=== PATIENT | male | born 1955 | race Caucasian/White ===

== ENCOUNTER 2019-11-21 16:09 | Emergency (ER) | payer OTHER, SELFPAY ==
[2019-11-21 16:20] VITALS: BP 141/99; PULSE 105; RESP 20; TEMP 37.9; O2SAT 97
--- NOTE | 2019-11-21 16:24 | ED.SKABFB ---
HPI - Skin/Abscess/Foreign Bdy General Chief complaint: Skin/Abscess/Foreign Body Stated complaint: L/leg swollen/pos spider bite Time Seen by Provider: 11/21/19 16:24 Source: patient Mode of arrival: ambulatory Limitations: no limitations History of Present Illness HPI narrative: 64 year old male presents to express care with complaints of bite on the back of his left posterior calf which is red with whitish center since Monday which he believes to be a spider bite. Patient has 1cm diameter red raised circular area to the posterior left upper calf with whitish center, no exudate noted. Patient also states symptoms of sinus pressure, cough and fever developing this morning. Patient is concerned over respiratory symptoms due to previous pneumonia history and coworkers being tested for COVID. Patient states that cough is nonproductive, denies any chest pressure, pain or palpitations, denies any dyspnea with respirations even and non labored. MD complaint: insect bite/sting Onset (ago): day(s) (3) Tetanus up to date: yes Location: LLE Severity: moderate Severity scale (1-10): 3 Quality: aching Pain Consistency: constant Relieving factors: none Exacerbating factors: none Context: other (insect bite) Associated symptoms: fever, cough and other (sinus pressure and congestion) Treatments prior to arrival: none and other (claritin daily) Related Data Home Medications Medication Instructions Recorded Confirmed loratadine 10 mg PO DAILY 11/21/19 11/21/19 Allergies Allergy/AdvReac Type Severity Reaction Status Date / Time No Known Allergies Allergy Verified 11/21/19 16:23 Review of Systems Review of Systems: Narrative: CONSTITUTIONAL: Reports fever, chills, or sweats. EYES: Denies visual changes, redness, or discharge. ENT: Positive rhinorrhea, congestion, sore throat, or otalgia. CARDIOVASCULAR: Denies chest pain, palpitations, or edema. RESPIRATORY: positive cough denies dyspnea. GASTROINTESTINAL: Denies abdominal pain, nausea, vomiting, or diarrhea. GENITOURINARY: Denies dysuria or hematuria. SKIN: Denies rash or itching, has lesion to posterior upper left calf with whitish center, no drainage noted.. MUSCULOSKELETAL: Denies back pain, joint pain, or myalgia. NEUROLOGIC: Denies headache, numbness, or weakness. PSYCHIATRIC: Denies anxiety or depression. All systems reviewed & are unremarkable except as noted in HPI and below PMFSH Past Medical History Medical History (Updated 11/22/19 @ 20:34 by Daphne Chu NP) Acute pulmonary embolism without acute cor pulmonale Mixed hyperlipidemia Pneumonia Social History Social History Smoking status: Never smoker Second hand tobacco smoke exposure: No Alcohol intake: never Substance use: never Substance use type: does not use Gender identity (if verbalized by the patient): Male Comments At time of signature, agree with nursing past medical, surgical, social history. There is no relevant family history pertinent to the presenting complaint Exam Narrative: Exam Narrative: GENERAL: Well-appearing, well-nourished, and in no acute distress. HEAD: Normocephalic, atraumatic. EYES: PERRLA and EOMI. ENT: Nares red, clear rhinorrhea no epistaxis, positive sinus pressure. Mucous membranes moist.TM's normal with good light reflex, throat pink with no tonsil swelling or exudates NECK: Supple.no lymphadenopathy CHEST: Clear to auscultation. No respiratory distress.cough SAO2 97% on room air. HEART: Regular rate and rhythm. No murmur heard. Normal peripheral pulses. ABDOMEN: Soft, nontender, nondistended, normal active bowel sounds. EXTREMITIES: Normal range of motion. No edema. SKIN: Warm, dry, no rash.1cm red raised lesion to back of left upper calf whitish center, no drainage noted or induration of tissue. NEURO: No focal deficits. Alert and oriented x3. Course Vital Signs Vital signs: Vital Signs Temperature 3
== END 2019-11-21 17:08 | disposition home or self-care (01) ==
PROVIDERS: Emergency Provider Registered Nurse; PCP Family Medicine
DX: L03.116 Cellulitis of left lower limb (principal); S80.862A Insect bite (nonvenomous), left lower leg, initial encounter; W57.XXXA Bitten or stung by nonvenomous insect and other nonvenomous arthropods, initial encounter; J06.9 Acute upper respiratory infection, unspecified; R05 Cough; Z20.828 Contact with and (suspected) exposure to other viral communicable diseases; E78.2 Mixed hyperlipidemia; Z86.711 Personal history of pulmonary embolism
CPT/HCPCS: 99213; G0463

== ENCOUNTER 2021-04-03 10:33 | Emergency (ER) | payer OTHER, SELFPAY ==
--- NOTE | ~2021-04-03 | XR_ITS ---
EXAMINATION: [id number] INDICATION: Right rib pain TECHNIQUE: A frontal view of the chest and 3 views of the right ribs were obtained. COMPARISON: None. FINDINGS: The lungs are free of acute opacities. There is no pleural effusion or pneumothorax. The ca rdiomediastinal silhouette is normal. No displaced rib fracture is identified. There is anterior and inferior dislocation of the right humeral head with respect to the glenoid. IMPRESSION: 1. No acute cardiopulmonary abnormality or evidence of displaced rib fracture. 2. Anterior and inferior dislocation of the right humeral head with respect to the glenoid. Reviewed, dictated and finalized at location A. EL SCRAPER
--- NOTE | ~2021-04-03 | XR_ITS ---
EXAMINATION: XR humerus RT INDICATION: Right arm pain TECHNIQUE: Two views of the right humerus are obtained on three radiographs. COMPARISON: None available FINDINGS: There is no fracture. There is anterior and inferior dislocation of the humeral head with r espect to the glenoid. Alignment at the elbow and acromioclavicular joints is normal. The soft tissue s are unremarkable. IMPRESSION: 1. Anterior/inferior dislocation of the humeral head with respect to the glenoid. Reviewed, dictated and finalized at location A. R INSTRUCTOR IMPRESSION: 1. Anterior/inferior dislocation of the humeral head with respect to the glenoi d.
--- NOTE | ~2021-04-03 | XR_ITS ---
EXAMINATION: XR shoulder RT min 2V INDICATION: Right glenohumeral dislocation post reduction TECHNIQUE: Three views of the right shoulder are submitted. COMPARISON: 1126 hours FINDINGS: There is persistent inferior and anterior dislocation of the humeral head with respect to t he glenoid. No fracture is identified. IMPRESSION: 1. Persistent glenohumeral dislocation. Reviewed, dictated and finalized at location A. CIENCY MANAGER
--- NOTE | ~2021-04-03 | XR_ITS ---
EXAMINATION: XR shoulder RT min 2V INDICATION: Right shoulder pain TECHNIQUE: Four views of the right shoulder are submitted. COMPARISON: None FINDINGS: There is anterior and inferior dislocation of the humeral head with respect to the glenoid. No fracture is identified. There is mild osteoarthritis at the acromioclavicular joint. Soft tissues are unremarkable. IMPRESSION: 1. Anterior/inferior dislocation of the humeral head with respect to the glenoid. Reviewed, dictated and finalized at location A. MACY SALES REPRESENTATIVE IMPRESSION: 1. Anterior/inferior dislocation of the humeral head with respect to the glenoi d.
[2021-04-03 10:38] VITALS: BP 168/87; PULSE 68; RESP 20; TEMP 36.4; O2SAT 98
[2021-04-03 10:51] VITALS: BP 168/87; PULSE 68; RESP 20; TEMP 36.4; O2SAT 98
--- NOTE | 2021-04-03 10:59 | ED.GENADULT ---
HPI - General Adult General Chief complaint: Extremity Injury, Upper Stated complaint: right side injury Time Seen by Provider: 04/03/21 10:59 Source: patient Mode of arrival: ambulatory Limitations: no limitations History of Present Illness HPI narrative: 65-year-old male patient presents to the [facility] with complaints of right shoulder and arm pain pain and right-sided rib pain after tripping and falling on concrete today. Patient states that he tripped and fell on some broken concrete and did hit his nose and lip and had some bleeding at the time. Denies loss of consciousness. Denies hitting his head at all. Patient states he is on blood thinners. Patient also complaining of right shoulder pain stating he cannot raise his right arm. Also has some soreness to the right rib area. Denies any increase in pain with inhalation. Related Data Home Medications Medication Instructions Recorded Confirmed loratadine 10 mg PO DAILY 11/21/19 04/03/21 Allergies Allergy/AdvReac Type Severity Reaction Status Date / Time No Known Allergies Allergy Verified 04/03/21 10:42 Review of Systems Review of Systems: CONSTITUTIONAL: Denies fever, chills, or sweats. EYES: Denies visual changes, redness, or discharge. ENT: Denies rhinorrhea, congestion, sore throat, or otalgia. Positive wound to nose and upper lip. CARDIOVASCULAR: Denies chest pain, palpitations, or edema. RESPIRATORY: Denies cough or dyspnea. GASTROINTESTINAL: Denies abdominal pain, nausea, vomiting, or diarrhea. GENITOURINARY: Denies dysuria or hematuria. SKIN: Denies rash or itching. MUSCULOSKELETAL: Denies back pain, joint pain, or myalgia. Positive right shoulder and arm pain. Right-sided rib pain NEUROLOGIC: Denies headache, numbness, or weakness. PSYCHIATRIC: Denies anxiety or depression. [facility] Past Medical History Medical History (Updated 04/03/21 @ 12:21 by SALINA Solares) Acute pulmonary embolism without acute cor pulmonale Arthritis Hypercholesterolemia Hypertension Left wrist fracture Mixed hyperlipidemia Pneumonia Social History Social History Smoking status: Never smoker Second hand tobacco smoke exposure: No Alcohol intake: never Substance use: never Substance use type: does not use Gender identity (if verbalized by the patient): Male Comments At the time of my signature I agree with nursing past medical history, surgical, social, and family history. There is no relevant family history pertinent to the presenting complaint. Exam Narrative: GENERAL: Well-appearing, well-nourished, and in no acute distress. HEAD: Normocephalic, atraumatic. EYES: PERRLA and EOMI. ENT: Nares clear, no rhinorrhea or epistaxis. Mucous membranes moist. Patient does have some abrasions with a small laceration to the bridge of the nose. No active bleeding at this time. Patient has some abrasions noted to the upper lip and the tip of the nose. NECK: Supple. No lymphadenopathy CHEST: Clear to auscultation. No respiratory distress. Patient able talk in clear complete sentences. There is some tenderness to the right side around the fourth and fifth rib on palpitation. HEART: Regular rate and rhythm. No murmur heard. Normal peripheral pulses. ABDOMEN: Soft, nontender, nondistended, normal active bowel sounds. EXTREMITIES: The R shoulder is without obvious asymmetry or deformity when compared to the L shoulder. No surface trauma, ecchymosis, crepitus. No bony deformity or prominence of the humeral head No erythema, warmth, swelling. no tenderness to palpation to clavicle, A to C joint, acromion, scapula or humeral head. Patient does have tenderness noted to the proximal humerus. No tenderness to palpation of the bicipital groove or soft tissues. No tenderness to palpation of the muscles of the sterncleidomastoid, pectorals, biceps/triceps, deltoid, trapezius, rhomboid, latissimus dorsi, rotator cuff. pa
[2021-04-03] MEDS: ACETAMINOPHEN 500 MG TABLET 1000 MG PO (12:30)
== END 2021-04-03 13:00 | disposition short-term general hospital (02) ==
PROVIDERS: Emergency Provider Nurse Practitioner Family; PCP Family Medicine
DX: S43.014A Anterior dislocation of right humerus, initial encounter (principal); S43.034A Inferior dislocation of right humerus, initial encounter; S00.31XA Abrasion of nose, initial encounter; W01.0XXA Fall on same level from slipping, tripping and stumbling without subsequent striking against object, initial encounter; M19.90 Unspecified osteoarthritis, unspecified site; E78.00 Pure hypercholesterolemia, unspecified; I10 Essential (primary) hypertension; E78.2 Mixed hyperlipidemia; Z86.711 Personal history of pulmonary embolism
CPT/HCPCS: 23650; 71101; 73030; 73060; 99215; A4565; A9270; G0463

== ENCOUNTER 2021-04-03 13:26 | Emergency (ER) | payer OTHER, SELFPAY ==
--- NOTE | ~2021-04-03 | CT_ITS ---
EXAMINATION: CT shoulder RT wo con EXAM DATE: 04/03/2021 15:42 INDICATION: Rule out glenoid fracture . Right shoulder pain, status post reduction. TECHNIQUE: Spiral CT shoulder RT wo con was performed without contrast. Axial, coronal and sagittal images were reviewed. The dose-length product (DLP) for this examination was 685.23 mGy-cm. The ex posure was tailored according to patient size (auto mA exposure control), and iterative reconstructio n (ASIR) was used as additional dose reduction technique. Correlation is made to x-rays from same bill e. FINDINGS: There is acute fracture of the inferior glenoid rim with displacement. Only mild right shou lder osteoarthritis. There is also a Hill-Sachs impaction type deformity, could be acute. Acromioclav icular joint intact. There is right shoulder joint lipohemarthrosis. IMPRESSION: 1. Acute right glenoid inferior rim fracture with displacement. 2. Hill-Sachs impaction deformity, probably acute. 3. Lipohemarthrosis. Reviewed, dictated and finalized at location A. MOBILE GLASS TECHNICIAN
--- NOTE | ~2021-04-03 | XR_ITS ---
EXAMINATION: XR shoulder RT min 2V EXAM DATE: 04/03/2021 14:41 INDICATION: Postreduction ground level fall. Initial encounter. TECHNIQUE: Internal, external rotation images of the right shoulder, Y projection. Comparison is mad e to prior examination from earlier same date. FINDINGS: Previously seen anterior inferior dislocation has been reduced, is in expected position. A ppearance to the inferior aspect of the glenoid could be from osteoarthritis, prior fracture, or an a cute fracture. Mild to moderate shoulder osteoarthritis. IMPRESSION: 1. Status post right humeral reduction. 2. Glenoid irregularity inferiorly, could be arthritis but acute glenoid fracture also possible. Reviewed, dictated and finalized at location A. F CLERK SHELTER IMPRESSION: 1. Status post right humeral reduction. 2. Glenoid irregularity inferiorly, could be arthritis but acute glenoid fract ure also possible.
[2021-04-03 13:41] VITALS: BP 179/89; PULSE 77; RESP 18; O2SAT 99
--- NOTE | 2021-04-03 13:50 | ED.UPPEXIN ---
HPI - Extremity Injury (Upper) General Chief Complaint: Extremity Injury, Upper Stated Complaint: shoulder dislocation Time Seen by Provider: 04/03/21 13:44 Source: patient Mode of arrival: EMS Limitations: no limitations History of Present Illness HPI narrative: Patient tripped and fell this morning landed on the right shoulder, denies other injuries. Urgent care x-ray showed dislocated right shoulder, failure to reduce, referred to the emergency room for management. Related Data Home Medications Medication Instructions Recorded Confirmed loratadine 10 mg PO DAILY 11/21/19 04/03/21 Allergies Allergy/AdvReac Type Severity Reaction Status Date / Time No Known Allergies Allergy Verified 04/03/21 10:42 Review of Systems Review of Systems: CONSTITUTIONAL: Denies fever, chills, or sweats. EYES: Denies visual changes, redness, or discharge. ENT: Denies rhinorrhea, congestion, sore throat, or otalgia. CARDIOVASCULAR: Denies chest pain, palpitations, or edema. RESPIRATORY: Denies cough or dyspnea. GASTROINTESTINAL: Denies abdominal pain, nausea, vomiting, or diarrhea. GENITOURINARY: Denies dysuria or hematuria. SKIN: Denies rash or itching. MUSCULOSKELETAL: Denies back pain, joint pain, or myalgia. NEUROLOGIC: Denies headache, numbness, or weakness. PSYCHIATRIC: Denies anxiety or depression. [facility] Past Medical History Medical History Acute pulmonary embolism without acute cor pulmonale Arthritis Hypercholesterolemia Hypertension Left wrist fracture Mixed hyperlipidemia Pneumonia Social History Social History Smoking status: Never smoker Second hand tobacco smoke exposure: No Alcohol intake: never Substance use: never Substance use type: does not use Gender identity (if verbalized by the patient): Male Exam Narrative: General appearance: Well-developed, well-nourished Skin: Normal color Head: Normocephalic, nontraumatic Eyes: Clear conjunctiva ENT: Oropharynx normal, ears normal, nose normal Neck: Supple, nontender Chest and respiratory: Airway patent, no respiratory distress, no accessory muscle use Heart: Regular rate/rhythm Abdomen: Soft, nontender, no organomegaly, quiet bowel sounds Vascular: Normal peripheral pulses, normal capillary refill. Musculoskeletal: Diffuse tenderness right shoulder, severe limited range of motion, positive deformity Neurologic: Alert and oriented ?3, BASIN CLEANER is normal as tested, no gross motor deficit Course Course Emergency Course: Stable, improving Vital Signs Vital signs: Vital Signs Pulse Rate 77 04/03/21 13:41 Respiratory Rate 18 04/03/21 13:41 Blood Pressure 179/89 H 04/03/21 13:41 Pulse Oximetry 99 04/03/21 13:41 Pulse Rate 76 04/03/21 16:40 Respiratory Rate 16 04/03/21 16:40 Blood Pressure 130/80 04/03/21 16:40 Pulse Oximetry 99 04/03/21 16:40 Procedures Orthopedic Joint Reduction Joint #1: Orthopedic Joint Reduction Date: 04/03/21 Orthopedic Joint Reduction Time: 18:54 Time Out Performed: No Side: right Joint Reduction Location: shoulder Pre-Procedure Neuro Vascular Exam: normal Shoulder Technique Used (if applicable): external rotation Post-reduction neuro exam: intact Post-reduction vascular: intact Post Reduction X-Ray Obtained: Yes Post Reduction X-Ray Results: reduced Splint Applied: Yes Patient Tolerated Procedure: well MDM - Extremity Injury (Upper) MDM Narrative Medical decision making narrative: Dislocated right shoulder. Closed reduction to go.
[2021-04-03] MEDS: diazePAM (*CRX) 5 MG TABLET PO (13:57)
[2021-04-03] MEDS: ONDANSETRON INJ 4 MG/2 ML VIAL IV PUSH (13:57)
[2021-04-03] MEDS: HYDROmorphone HCL INJ (*CRX) 1 MG/ML SYR 0.5 MG IV PUSH (14:00)
--- NOTE | 2021-04-03 15:04 | PC.NURSE ---
Shoulder immobilizer does not fit the patient d/t size. Dr. José made aware of this.
[2021-04-03 16:40] VITALS: BP 130/80; PULSE 76; RESP 16; O2SAT 99
== END 2021-04-03 16:41 | disposition home or self-care (01) ==
PROVIDERS: Emergency Provider Emergency Medicine; PCP Family Medicine
DX: S43.004A Unspecified dislocation of right shoulder joint, initial encounter (principal); S42.91XA Fracture of right shoulder girdle, part unspecified, initial encounter for closed fracture; M19.90 Unspecified osteoarthritis, unspecified site; I10 Essential (primary) hypertension; E78.5 Hyperlipidemia, unspecified; W19.XXXA Unspecified fall, initial encounter
CPT/HCPCS: 23650; 73030; 73200; 96374; 96375; 99285; A9270; J1170; J2405

== ENCOUNTER 2021-12-10 16:31 | Outpatient (CLI) | payer OTHER, SELFPAY ==
--- NOTE | ~2021-12-10 | XR_ITS ---
EXAMINATION: XR chest 2V DATE: 12/10/2021 16:54 INDICATION: Unspecified acute lower respiratory infection. TECHNIQUE: Frontal and lateral views of the chest were obtained. COMPARISON: Chest 2 views 09/26/2018, chest CT 09/26/2018 FINDINGS: There are small pleural effusions. There is a diffuse interstitial pattern in the lungs, co nsistent with mild pulmonary edema. A calcified right lung nodule is consistent with old granulomatou s disease. No pneumothorax. Cardiomegaly is noted. IMPRESSION: 1. Mild pulmonary edema. 2. Small pleural effusions. 3. Cardiomegaly. Reviewed, dictated and finalized at location A.
== END 2021-12-10 16:32 ==
PROVIDERS: PCP Family Medicine; Visit Provider Family Medicine
DX: J22 Unspecified acute lower respiratory infection (principal); J81.1 Chronic pulmonary edema; J90 Pleural effusion, not elsewhere classified; I51.7 Cardiomegaly
CPT/HCPCS: 71046

== ENCOUNTER 2021-12-16 09:57 | Inpatient (IN) | payer OTHER, MEDICARE, SELFPAY ==
[2021-12-16] VITALS (16 sets, daily range): BP systolic 133–173; BP diastolic 43–69; PULSE 72–85; RESP 16–28; TEMP 36.1–36.4; O2SAT 94–99; BMI 38.2
--- NOTE | ~2021-12-16 | CT_ITS ---
EXAMINATION: CTA chest PE protocol DATE: 12/16/2021 11:30 INDICATION: Chest pain and shortness of breath TECHNIQUE: Computed tomography angiography (CTA) of the chest was performed with 100 mL Omnipaque-350 intravenous contrast timed to evaluate the pulmonary arteries. Coronal maximum intensity projection 3D-reconstructions were created by the technologist. The dose-length product (DLP) was 846.13 mGy-cm. Automated exposure control and iterative reconstruction technique were employed. COMPARISON: 09/26/2018 FINDINGS: Respiratory motion limits evaluation of peripheral pulmonary arteries. The pulmonary arteri es are well-opacified. No acute central pulmonary embolism is identified. There appears to be minimal eccentric thrombus of pulmonary arteries in the right lower lobe, consistent with chronic pulmonary emboli. There are small pleural effusions. There are patchy airspace opacities throughout all lung zo mala. No pneumothorax is identified. Cardiomegaly is noted. There is mild circumferential wall thicken ing of the distal esophagus. There is bilateral hilar lymphadenopathy, likely reactive. There is mild thoracic spondylosis. IMPRESSION: 1. No acute, central pulmonary embolus identified, sensitivity limited by respiratory motion artifact . 2. Probable chronic pulmonary emboli of the right lower lobe. 3. Diffuse airspace opacities of the lungs, consistent with pneumonia and/or pulmonary edema. 4. Small pleural effusions. 5. Mild wall thickening of the esophagus which could reflect esophagitis. Reviewed, dictated and finalized at location B. IMPRESSION: 1. No acute, central pulmonary embolus identified, sensitivity limited by respi ratory motion artifact. 2. Probable chronic pulmonary emboli of the right lower lobe. 3. Diffuse airspace opacities of the lungs, consistent with pneumonia and/or pu lmonary edema. 4. Small pleural effusions. 5. Mild wall thickening of the esophagus which could reflect esophagitis.
--- NOTE | ~2021-12-16 | US_ITS ---
EXAMINATION:US venous doppler LE BI INDICATION:Bilateral lower extremity swelling. History of left DVT. TECHNIQUE: Multiple grayscale, color flow and Doppler images of the right and left lower extremity de ep venous systems were obtained and reviewed. COMPARISON:Ultrasound dated 09/27/2018 FINDINGS: The right common femoral, superficial femoral and popliteal veins demonstrate normal respir atory variation, augmentation and compressibility. Color flow is also seen within the posterior tibi al, peroneal, greater saphenous and profunda veins. There is chronic thrombosis of the left popliteal vein. The remainder of the left lower extremity veins are patent. IMPRESSION: 1: Chronic DVT of the left popliteal vein. Reviewed, dictated and finalized at location A.
--- NOTE | ~2021-12-16 | XR_ITS ---
XR chest 2V 12/16/2021 10:31 Indication: Shortness of breath and chest tightness Procedure: 2 view chest Comparison: Comparison to multiple prior studies sequentially, with oldest reviewed study dated 08/2017. Findings: Cardiomegaly with interstitial edema. Small pleural effusions. No pneumothorax. No acute os seous abnormality. Impression: 1: Cardiomegaly with interstitial edema. 2: Small pleural effusions. Reviewed, dictated and finalized at location A. Impression: 1: Cardiomegaly with interstitial edema. 2: Small pleural effusions.
--- NOTE | 2021-12-16 10:09 | ECG_ITS ---
Measurements Intervals [place] Rate: 84 P: 15 KS: 155 QRS: 28 QRSD: 104 T: 22 QT: 363 QTc: 429 Interpretive Statements SINUS RHYTHM WITH OCCASIONAL VENTRICULAR PREMATURE COMPLEXES NONSPECIFIC ST ABNORMALITY BORDERLINE ECG COMPARED TO ECG 09/26/2018 11:23:16 PREMATURE VENTRICULAR CONTRACTIONS NOW PRESENT Electronically Signed On 12-16-2021 15:23:32 CDT by Luis Mendieta M.D.
[2021-12-16 10:29] LABS: Basophils Percent Auto 0.2 % (0.2-1.2); Eosinophils Absolute Auto 0.1 K/mm3 (0-0.3); Eosinophils Percent Auto 0.4 % (0-4.4); Hematocrit 36.7 % (42.0-52.0); Hemoglobin 11.9 g/dL (14.0-18.0); Immature Granulocyte Absolute 0.39 K/mm3 (0.00-0.031); Immature Granulocyte Percent A 2.4 % (0-0.5); Lymphocytes Absolute Auto 2.18 K/mm3 (0.9-3.2); Lymphocytes Percent Auto 13.3 % (18.3-44.2); Mean Corpuscular HGB Conc 32.4 g/dl (32-36); Mean Corpuscular Hemoglobin 29.8 pg (26-34); Mean Corpuscular Volume 91.8 fl (80-100); Mean Platelet Volume 8.4 fl (7.4-10.4); Monocytes Percent Auto 6.4 % (2.6-8.5); Neutrophils Absolute Auto 12.7 K/mm3 (1.3-6.7); Neutrophils Percent Auto 77.3 % (45.5-73.1); Platelet Count Result 436 k/mm3 (150-375); Red Cell Distribution Width 16.1 % (11.5-14.5); White Blood Count 16.4 K/mm3 (4.5-10.0)
[2021-12-16 10:31] LABS: INR 1.9; Prothrombin Time 20.7 Seconds (11.1-14.7)
[2021-12-16 10:32] LABS: Partial Thromboplastin Time 33.5 SECONDS (22.3-36.8)
[2021-12-16 10:33] LABS: Alanine Aminotransferase 40 U/L (6-50); Albumin Level 3.5 g/dL (3.5-5.1); Alkaline Phosphatase 97 U/L (38-126); Anion Gap 9 mmol/L (8-16); Aspartate Amino Transferase 27 U/L (17-59); Bilirubin,Total 0.6 mg/dL (0.2-1.3); Blood Urea Nitrogen 17 mg/dL (9-20); Calcium 8.4 mg/dL (8.4-10.2); Carbon Dioxide 25 mmol/L (22-30); Chloride 104 mmol/L (98-107); Estimated CRCL calculation 74 ml/min; Estimated Glomerular Filt Rate > 60; Glucose 131 mg/dL (65-110); Lipase 86 U/L (23-300); Sodium 138 mmol/L (137-145)
--- NOTE | 2021-12-16 10:48 | ED.CHESTPAIN ---
HPI - Chest Pain General Chief Complaint: Chest Pain Stated Complaint: CHEST TIGHT/SOB HX COVID OCTOBER 2021 Time Seen by Provider: 12/16/21 10:12 History of Present Illness HPI narrative: 66-year-old male presents to the emergency room for evaluation of worsening shortness of breath. Patient states in mid October he was diagnosed with COVID, completed Paxil for treatment and stated his symptoms did not improve. Approximately 1 week ago he was seen in his primary care's office, where he was diagnosed with pneumonia. Patient was also experiencing increased lower extremity swelling. Patient was given a course of doxycycline and started on 20 mg of Lasix. Patient notes an improvement initially, until last night where he became more short of breath. Patient is on Xarelto for multiple PE/DVTs. Related Data Home Medications Medication Instructions Recorded Confirmed loratadine 10 mg capsule 10 mg PO DAILY 11/21/19 12/08/21 Allergies Allergy/AdvReac Type Severity Reaction Status Date / Time No Known Allergies Allergy Verified 12/16/21 10:08 Review of Systems Review of Systems: CONSTITUTIONAL: Denies fever, chills, or sweats. EYES: Denies visual changes, redness, or discharge. ENT: Denies rhinorrhea, congestion, sore throat, or otalgia. CARDIOVASCULAR: Denies chest pain, palpitations, reports lower extremity edema RESPIRATORY: Reports exertional dyspnea GASTROINTESTINAL: Denies abdominal pain, nausea, vomiting, or diarrhea. GENITOURINARY: Denies dysuria or hematuria. SKIN: Denies rash or itching. MUSCULOSKELETAL: Denies back pain, joint pain, or myalgia. NEUROLOGIC: Denies headache, numbness, dizziness, or weakness. PSYCHIATRIC: Denies anxiety or depression. [facility] Past Medical History Medical History Acute pulmonary embolism without acute cor pulmonale Arthritis DVT (deep venous thrombosis) Fracture of glenoid process of right scapula Hypercholesterolemia Hypertension Left wrist fracture Mixed hyperlipidemia Pneumonia Psoriasis Pulmonary embolism Family History Family History Other HLD (hyperlipidemia) Social History Social History Smoking status: Never smoker Second hand tobacco smoke exposure: No Alcohol intake: never Substance use: never Substance use type: does not use Additional occupation/education comments: [employer] Gender identity (if verbalized by the patient): Male Spiritual care concerns: No Agree to blood products: Yes Exam Narrative: GENERAL: Well-appearing, well-nourished, no physical limitations, and in no acute distress. HEAD: Normocephalic, atraumatic. EYES: Conjunctivae normal, PERRLA and EOMI. CHEST: Decreased breath sounds at bases. No respiratory distress. HEART: Regular rate and rhythm. No murmur heard. Normal peripheral pulses. ABDOMEN: Soft, nontender, nondistended, normal active bowel sounds. BACK: No CVA tenderness; No cervical/thoracic/lumbar tenderness, step-offs, bony abnormality; FROM EXTREMITIES: Normal range of motion. +4 pitting edema to lower extremities. No clubbing or cyanosis SKIN: Warm, dry, no rash. No noted wounds. Hyperpigmentation of left lower extremity NEURO: No focal deficits. Alert and oriented x3. MAEW. CN's II-XI intact bilaterally, normal gait PSYCH: Cooperative. Normal mood and affect. Course Vital Signs Vital signs: Vital Signs Temperature 36.4 C 12/16/21 10:02 Pulse Rate 85 12/16/21 10:02 Respiratory Rate 24 H 12/16/21 10:02 Blood Pressure 173/60 H 12/16/21 10:02 Pulse Oximetry 96 12/16/21 10:02 Oxygen Delivery Room Air 12/16/21 10:02 Temperature 36.4 C 12/16/21 10:02 Pulse Rate 74 12/16/21 12:57 Respiratory Rate 28 H 12/16/21 12:57 Blood Pressure 133/51 L 12/16/21 12:57 Pulse Oximetry 96 12/16/21 12:57 Oxygen Delivery
[2021-12-16 10:53] LABS: Troponin I 0.081 ng/mL (0.000-0.034)
--- NOTE | 2021-12-16 10:58 | PC.NURSE ---
pt to CT at this time.
[2021-12-16] MEDS: FUROSEMIDE INJ 40 MG/4 ML VIAL IV PUSH (12:19)
[2021-12-16 12:37] LABS: Lactic Acid Reflex 1.1 mmol/L (0.7-2.0)
[2021-12-16 12:47] LABS: NT Pro B Type Natriuretic Pept 3680 pg/mL (5-100)
[2021-12-16 13:46] LABS: Troponin I 0.078 ng/mL (0.000-0.034)
--- NOTE | 2021-12-16 14:00 | PM.IMHP ---
H&P: HPI History of Present Illness Date/Time: 12/16/21 14:00 Chief Complaint: Chest tightness and shortness of breath. Narrative: This is a pleasant 66-year-old male with history of bilateral PE and DVT on long-term anticoagulation and hyperlipidemia who presented to the ED via private vehicle from home for evaluation of chest tightness and shortness of breath. He tested positive for COVID in mid October and was prescribed Paxlovid on 11/08/2021. He felt better in about a week's time though he has a lingering cough and postnasal drip. Several weeks ago he began feeling short of breath with exertion and he started to notice swelling in his lower legs. Dr. Gonzalez saw him in the office on 12/08/2021 at which time he was prescribed doxycycline and a prednisone taper for presumed lower respiratory tract infection as well as furosemide for his edema. Outpatient chest x-ray on the showed cardiomegaly, small pleural effusions, and pulmonary edema and he was scheduled for an echocardiogram next Monday. Unfortunately his symptoms are not improving much and he was directed to the ER today after he developed orthopnea and mid chest tightness while trying to sleep last night. He was afebrile on arrival to the emergency department and his vital signs have been stable though his blood pressures have been running a bit high. Pertinent labs include: WBC 16.4, troponin 0.081, proBNP 3680. EKG showed a sinus rhythm with some nonspecific ST abnormalities in the lateral leads. Venous Doppler ultrasounds of lower extremity showed evidence of chronic DVT of left popliteal vein. CTA of the chest showed no acute, central pulmonary embolus and probable chronic PE of the right lower lobe as well as diffuse airspace opacities the lungs consistent with no and/or pulmonary edema and small pleural effusions. He has since been admitted for further treatment and evaluation of suspected new onset congestive heart failure. At the time my evaluation, he is having an echocardiogram performed. He has put out quite a bit of urine thus far and reports feeling less short of breath than he was this morning. He is not currently having any chest discomfort. He has no known history of heart disease. Review of Systems Review of Systems: Twelve systems were reviewed and are negative except for as per HPI. [facility] Past Medical History Medical History (Updated 12/16/21 @ 16:39 by Jacqueline Michele PA-C) Acute pulmonary embolism without acute cor pulmonale (09/2018) Arthritis Chronic anticoagulation Chronic deep vein thrombosis (09/2018) Left popliteal vein. Hypertension Mixed hyperlipidemia Psoriasis Surgical History Surgical History (Updated 12/16/21 @ 14:03 by Jacqueline Michele PA-C) No history of previous surgery Family History Family History (Updated 12/16/21 @ 14:04 by Jacqueline Michele PA-C) Mother Liver cancer Father Alcoholism Social History Social History (Updated 12/16/21 @ 14:04 by Jacqueline Michele PA-C) Social History: Surrogate medical decision maker: Lyndsey Bolden, . Code status: Full code. Smoking status: Never smoker Second hand tobacco smoke exposure: No Alcohol intake: never Substance use: never Substance use type: does not use Additional living arrangements comments: Lives with in [place]. They have adult twin daughters. 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 Spiritual care concerns: No Agree to blood products: Yes Meds Home Medications and Allergies Home Medications Medication Instructions Recorded Confirmed Type loratadine 10 mg capsule 10 mg PO DAILY 11/21/19 12/08/21 History atorvastatin 20 mg tablet 20 mg PO DAILY #90 tabs 09/05/21 12/08/21 Rx rivaroxaban 10 mg tablet (Xarelto) 10 mg PO DAILY #30 tabs 10/15/21 12/08/21 Rx albuterol sulfate 90 mcg/actuation 1 inh inhalation Q4H PRN shortness 12/08/21 12/08/21 Rx aerosol inhaler of breath or wheezing #8.5 g
--- NOTE | 2021-12-16 14:07 | ECHO_ITS ---
Patient Info Name: Yuan Weiner Age: 66 years : 1955 Gender: Male Ht: 70 in Wt: 266 lbs BSA: 2.49 m2 HR: 68 bpm BP: 153 / 57 mmHg Heart Rhythm: Sinus Rhythm Technical Quality: Fair Exam Date: 12/16/2021 3:30 PM Exam Location: [facility] Patient Status: Inpatient Admit Date: 12/16/2021 Staff Ordering Physician: Jacqueline Michele PA-C Wind Up Worker: Maria De Jesus Maddox RDCS Attending Provider: Patrick Dewitt MD Referring Physician: Ryne MEDINA; Exam Type: CA echo dop color flow w con Study Info Indications - cardiomegaly pulmonary edema Complete two-dimensional, color flow and Doppler transthoracic echocardiogram is performed with contrast to opacify the left ventricle and to improve the deliniation of the left ventricle endocardial borders. Contrast/Agitated Saline Contrast/Ag. Saline: Definity Amount: 2.00 ml Administered By: Maria De Jesus Maddox [facility] Existing IV Access: Yes IV Access Condition: patent with no signs of infiltration Summary 1. Left ventricular chamber dimension is mildly enlarged. 2. Left ventricular systolic function is normal, estimated at >70%. 3. There is no increased left ventricular wall thickness. 4. The left ventricular diastolic function is abnormal. 5. Left atrial chamber dimension is severely enlarged. 6. There is moderate aortic valve stenosis with a peak velocity of 247.61 cm/s, mean gradient of 8 mmHg, and aortic valve area of 1.22 cm2. 7. There is mild mitral valve regurgitation. 8. There is trace tricuspid valve regurgitation. 9. Moderate pulmonary hypertension, estimated pulmonary arterial systolic pressure is 48 mmHg. Left Ventricle Left ventricular chamber dimension is mildly enlarged. Left ventricular systolic function is normal, estimated at >70%. There is no increased left ventricular wall thickness. The left ventricular diastolic function is abnormal. Right Ventricle Right ventricular chamber dimension is normal. Right ventricular systolic function is normal. Left Atria Left atrial chamber dimension is severely enlarged. Right Atria Right atrial chamber dimension is normal. Aortic Valve The aortic valve is trileaflet. There is moderate aortic valve stenosis with a peak velocity of 247.61 cm/s, mean gradient of 8 mmHg, and aortic valve area of 1.22 cm2. There is mild aortic valve regurgitation. There is moderate aortic valve calcification. Pulmonic Valve The pulmonic valve is not well visualized. There is trace pulmonic regurgitation. Mitral Valve The mitral valve has normal leaflets. There is mild mitral valve regurgitation. The mitral valve annulus is mildly calcified. Tricuspid Valve The tricuspid valve leaflets are normal. There is trace tricuspid valve regurgitation. Moderate pulmonary hypertension, estimated pulmonary arterial systolic pressure is 48 mmHg. Pericardium/Pleural The pericardium appears normal. There is no pericardial effusion. Inferior Vena Cava Normal inferior vena cava with >50% collapse upon inspiration consistent with normal right atrial pressure, 5 mmHg. Aorta The aortic root size at the sinus of Valsalva is normal. There is moderate aortic atherosclerosis. Left Ventricular Outflow Tract Name Value Normal
[2021-12-16 14:39] LABS: Magnesium 1.9 mg/dL (1.6-2.3)
[2021-12-16 14:42] LABS: CRP < 0.5 mg/dL (<1.0)
--- NOTE | 2021-12-16 15:45 | ADMGEN ---
This patient, Yuan Weiner Jr., was admitted to IMU Room 214-01 on 12/16/21 at 1311. Patient/family oriented to hospital policies and general routines including ID bracelet, bed and alarms, visiting hours, pain management, procedures, bathroom and other care routines, personal items, smoking policy, room service/diet, and visiting hours. Information on how to activate the Rapid Response Team has been discussed. Patient/Family are encouraged to report perceived risks to care and to ask questions if they do not understand what they are told or what they should do.
[2021-12-16 15:46] LABS: Folic Acid 18.9 ng/mL (2.76->20)
[2021-12-16] MEDS: PERFLUTREN LIPID MICROSPHERES 1.5 ML VIAL DILUTED TO 10 ML TOTAL VOLUME IV PUSH (16:10)
[2021-12-16 16:46] LABS: Procalcitonin 0.1 ng/mL
[2021-12-16 16:53] LABS: Troponin I 0.091 ng/mL (0.000-0.034)
[2021-12-16 17:06] LABS: Iron 56 ug/dL (49-181)
[2021-12-16 17:18] LABS: Percent Iron Saturation 20 % (20-50)
[2021-12-16] MEDS: FUROSEMIDE INJ 40 MG/4 ML VIAL 20 MG IV PUSH (21:07)
[2021-12-16] MEDS: DOXYCYCLINE HYCLATE 100 MG TABLET PO (21:07)
--- NOTE | 2021-12-16 21:13 | PCRCNOTE ---
Apnea link to be done on 12/17 PM due to pt being on lasix. RT discussed with Eva Cooper RN. Both agreed the study would not be accurate with the patient getting up to use the restroom all night.
[2021-12-17] VITALS (12 sets, daily range): BP systolic 123–128; BP diastolic 42–67; PULSE 67–91; RESP 16–32; TEMP 35.9–36.6; O2SAT 94–97
[2021-12-17 04:19] LABS: Hematocrit 34.1 % (42.0-52.0); Mean Corpuscular HGB Conc 32.3 g/dl (32-36); Mean Corpuscular Hemoglobin 29.7 pg (26-34); Mean Corpuscular Volume 92.2 fl (80-100); Mean Platelet Volume 8.2 fl (7.4-10.4); Platelet Count Result 366 k/mm3 (150-375); Red Cell Distribution Width 16.2 % (11.5-14.5)
[2021-12-17 04:39] LABS: Anion Gap 6 mmol/L (8-16); Blood Urea Nitrogen 17 mg/dL (9-20); Calcium 8.4 mg/dL (8.4-10.2); Carbon Dioxide 31 mmol/L (22-30); Chloride 99 mmol/L (98-107); Estimated CRCL calculation 64 ml/min; Estimated Glomerular Filt Rate 55; Glucose 90 mg/dL (65-110); Potassium 3.8 mmol/L (3.4-5.0); Sodium 136 mmol/L (137-145)
[2021-12-17] MEDS: ATORVASTATIN 20 MG TABLET PO (08:39)
[2021-12-17] MEDS: MULTIVITAMINS THERAPEUTIC TAB (*BKC) 1 TABLET PO (08:39)
[2021-12-17] MEDS: FUROSEMIDE INJ 40 MG/4 ML VIAL 20 MG IV PUSH ×2 (08:39→21:04)
[2021-12-17] MEDS: LORATADINE 10 MG TABLET PO (08:39)
[2021-12-17] MEDS: RIVAROXABAN 10 MG TABLET PO (08:39)
[2021-12-17] MEDS: predniSONE 10 MG TABLET PO (08:39)
[2021-12-17] MEDS: DOXYCYCLINE HYCLATE 100 MG TABLET PO ×2 (09:26→21:04)
--- NOTE | 2021-12-17 10:08 | PM.IMPN ---
Progress Note: A&P Assessment and Plan (1) New onset of congestive heart failure: Code(s): I50.9 - Heart failure, unspecified Status: Acute Assessment and Plan: 12/16 echo LVEF 70%, LA severely enlarged, RVSP 48. Continue Lasix IV 20 mg b.i.d., monitor urine output and creatinine. TSH normal (2) History of pulmonary embolus (PE): Code(s): Z86.711 - Personal history of pulmonary embolism Status: Acute Assessment and Plan: Venous Doppler study showing chronic left popliteal vein DVT, CT PA showing probable chronic pulmonary emboli of the right lower lobe. Continue Xarelto (3) Upper respiratory infection with cough and congestion: Code(s): J06.9 - Acute upper respiratory infection, unspecified Status: Acute Assessment and Plan: Continue doxycycline for 1 more day. Procalcitonin (4) Mixed hyperlipidemia: Code(s): E78.2 - Mixed hyperlipidemia Status: Acute Assessment and Plan: Continue Lipitor (5) Normocytic anemia: Code(s): D64.9 - Anemia, unspecified Status: Acute Assessment and Plan: B12/folate normal Subjective Date/time seen: 12/17/21 10:08 Patient examined, chart reviewed. Patient unable to perform ApneaLink last night due to frequent urination from Lasix. He reports symptomatically feels significantly better. No chest pain or shortness of breath today. Review of Systems Review of Systems: Ten point ROS reviewed, negative unless otherwise specified per subjective Exam Narrative: General: A well-developed male sitting up in bed in no distress. Weight: 121 kg. BMI: 38.3. HEENT: PERRL, EOMI. Conjunctivae anicteric. Oral mucosa moist. Neck: Supple. No lymphadenopathy or jugular venous distention. Respiratory: Respirations are nonlabored and he is speaking in full sentences. No crackels noted Cardiovascular: Regular rate and rhythm with S1-S2. 2/6 systolic murmur at the upper sternal border. Gastrointestinal: Abdomen is soft, obese, and nontender with positive bowel sounds. Skin: Warm and dry. Chronic hyperpigmentation changes of the lower legs, left greater than right. Extremities: No cyanosis or clubbing. 1+ pitting edema LLE, 2+ RLE. Negative Cherelle sign bilaterally. Neurological: Alert. Cranial nerves 2-12 are grossly intact. No gross focal deficits to casual conversation. Psychiatric: Pleasant and cooperative with normal mood and affect. Judgment and insight intact. Objective Data Vital Signs Vital Signs: Vital Signs - 24 hr 12/16/21 10:18 12/16/21 10:56 12/16/21 11:54 Temperature Pulse Rate 78 82 Respiratory Rate 21 H 28 H Blood Pressure 153/69 H 159/55 H Pulse Oximetry 96 96 94 Oxygen Delivery Room Air Oxygen Flow Rate 12/16/21 12:23 12/16/21 12:57 12/16/21 13:15 Temperature 97.1 F L Pulse Rate 74 78 Respiratory Rate 28 H 18 Blood Pressure 133/51 L 153/57 H Pulse Oximetry 97 96 99 Oxygen Delivery Nasal Cannula Oxygen Flow Rate 2 12/16/21 14:36 12/16/21 16:00 12/16/21 16:00 Temperature 97 F L Pulse Rate 75 Respiratory Rate 22 H Blood Pressure 148/48 H Pulse Oximetry 96 96 96 Oxygen Delivery Nasal Cannula Nasal Cannula Oxygen Flow Rate 2 2 12/16/21 13:11 12/16/21 14:00 12/16/21 16:00 Temperature Pulse Rate 79 75 Respiratory Rate Blood Pressure Pulse Oximetry 96 Oxygen Delivery Nasal Cannula Oxygen Flow Rate 2 12/16/21 13:17 12/16/21 18:00 12/16/21 19:53 Temperature 97.5 F L Pulse Rate 83 78 73 Respiratory Rate 16 Blood Pressure 139/43 L Pulse Oximetry 96 Oxygen Delivery Oxygen Flow Rate 12/16/21 20:00 12/16/21 20:00 12/16/21 22:00 Temperature Pulse Rate 73 72 Respiratory Rate Blood Pressure Pulse Oximetry 96 Oxygen Delivery Nasal Cannula Oxygen Flow Rate 2 12/17/21 00:00 12/17/21 00:00 12/17/21 00:00 Temperature 97.4 F L Pulse Rate 70 67 Respiratory Rate 18 Blood
--- NOTE | 2021-12-17 16:22 | PC.NURSE ---
This patient, Yuan Pereira Husam Hanna, was received from [[id number] ] on 12/17/21 at 1620. Patient/family oriented to unit policies and routines
[2021-12-18] VITALS (7 sets, daily range): BP systolic 121–135; BP diastolic 46–51; PULSE 65–74; RESP 18–20; TEMP 35.7–36.8; O2SAT 94–99
[2021-12-18] MEDS: MULTIVITAMINS THERAPEUTIC TAB (*BKC) 1 TABLET PO (08:33)
[2021-12-18] MEDS: RIVAROXABAN 10 MG TABLET PO (08:33)
[2021-12-18] MEDS: ATORVASTATIN 20 MG TABLET PO (08:33)
[2021-12-18] MEDS: LORATADINE 10 MG TABLET PO (08:33)
[2021-12-18 09:23] LABS: Iron 91 ug/dL (49-181)
[2021-12-18 09:32] LABS: Percent Iron Saturation 32 % (20-50)
--- NOTE | 2021-12-18 09:59 | PM.DS ---
DS: Admitting Diagnosis Discharge Date 12/18/2021 Admitting Diagnosis New onset heart failure DS: Summary Hospital Course Reason for hospitalization: New onset heart failure Hospital Course: 66-year-old male presented due to worsening shortness of breath. Workup concerning for new onset heart failure. Patient was started on IV Lasix. 12/16 TTE showing LVEF 70%, Wendy severely enlarged, RVSP 48. Patient has a history of DVT/PE, venous Doppler study was done that showed chronic left popliteal vein DVT, CT PA showing probable chronic pulmonary emboli of the right lower lobe. Patient's Xarelto was continued throughout stay. Patient reported drastic improvement in symptoms, was eventually transitioned over to p.o. Lasix. Patient discharged in stable condition Time Spent with Patient Time attestation: Total time spent providing and/or coordinating discharge services: Exam Narrative: General: A well-developed male sitting up in bed in no distress. Weight: 121 kg. BMI: 38.3. HEENT: PERRL, EOMI. Conjunctivae anicteric. Oral mucosa moist. Neck: Supple. No lymphadenopathy or jugular venous distention. Respiratory: Respirations are nonlabored and he is speaking in full sentences. Mild crackles at base Cardiovascular: Regular rate and rhythm with S1-S2. 2/6 systolic murmur at the upper sternal border. Gastrointestinal: Abdomen is soft, obese, and nontender with positive bowel sounds. Skin: Warm and dry. Chronic hyperpigmentation changes of the lower legs, left greater than right. Extremities: No cyanosis or clubbing. 1+ pitting edema LLE, 2+ RLE. Negative Cherelle sign bilaterally. Neurological: Alert. Cranial nerves 2-12 are grossly intact. No gross focal deficits to casual conversation. Psychiatric: Pleasant and cooperative with normal mood and affect. Judgment and insight intact. DS: Data Data Completed and Pending Labs on day of discharge: Labs from last 24 hours 12/18/21 08:36 Iron 91 TIBC 286 % Saturation Pending Ferritin Pending Discharge Plan Discharge Attending physician on discharge: Tani Menchaca Discharging Clinician: Tani Menchaca Patient Disposition: Home, Self-Care Activity: unlimited and as tolerated Diet: heart healthy Patient Instructions: Rivaroxaban (By mouth), Antibiotic Form Stand Alone Forms: General Discharge Information Follow-up/Referrals: Alison Gonzalez MD [Primary Care Provider] - Discharge Medications: New furosemide 40 mg Tablet 40 mg PO DAILY Qty: 30 3RF Continued loratadine 10 mg Capsule 10 mg PO DAILY albuterol sulfate 90 mcg/actuation HFA aerosol inhaler 1 inh inhalation Q4H PRN (Reason: shortness of breath or wheezing) Qty: 8.5 0RF multivitamin Tablet 1 tablet PO DAILY acetaminophen [Tylenol Arthritis] 650 mg Tablet Extended Release 650 mg PO Q12H atorvastatin 20 mg tablet 20 mg PO DAILY Qty: 90 0RF Xarelto 10 mg tablet 10 mg PO DAILY Qty: 30 5RF potassium chloride 10 mEq capsule, extended release 10 meq PO .EVERY OTHER DAY Qty: 30 0RF Discontinued doxycycline hyclate 100 mg capsule 100 mg PO BID 10 Days Qty: 20 0RF Label Comments: 3 doses left (12/16 PM, 12/17 AM & PM) prednisone 10 mg tablet See Rx Instructions .Route .COMPLEX 10 Days Qty: 30 0RF Label Comments: Pt's last dose is 1 tab daily on 12/17 Rx Instructions: 5 tab daily for 2 day 4 tab daily for 2 day 3 tab daily for 2 day 2 tab daily for 2 day 1 tab daily for 2 day then dc ; Pt's last dose is 1 tab daily on 12/17 furosemide 20 mg tablet 20 mg PO QAM Qty: 30 0RF Date of admission: 12/17/21 13:31 Primary Care Provider: Alison Gonzalez Admitting Provider: Patrick Dewitt Attending physician on admission: Tani Menchaca Condition: Stable
[2021-12-18] MEDS: FUROSEMIDE 40 MG TABLET PO (10:35)
== END 2021-12-18 17:23 | disposition home or self-care (01) | DRG 292 ==
LOC: ANHED 10:19 → ANHIMU 16:01 → ANH3MEDSUR 12-17 16:10
PROVIDERS: Emergency Medicine; Physician Assistant; Admitting Provider Internal Medicine; Emergency Provider Nurse Practitioner Family; PCP Family Medicine; Visit Provider Internal Medicine
DX: I11.0 Hypertensive heart disease with heart failure (principal); I82.532 Chronic embolism and thrombosis of left popliteal vein; I50.9 Heart failure, unspecified; J06.9 Acute upper respiratory infection, unspecified; G47.30 Sleep apnea, unspecified; R77.8 Other specified abnormalities of plasma proteins; E78.2 Mixed hyperlipidemia; D64.9 Anemia, unspecified; M19.90 Unspecified osteoarthritis, unspecified site; Z79.01 Long term (current) use of anticoagulants; Z86.711 Personal history of pulmonary embolism; Z86.16 Personal history of COVID-19
CPT/HCPCS: 36415; 71046; 71275; 80048; 80053; 82607; 82728; 82746; 83540; 83550; 83605; 83690; 83735; 83880; 84145; 84443; 84484; 85025; 85027; 85610; 85730; 86140; 93005; 93970; 94762; 96365; 96374; 96375; 96376; 99285; A9270; C8929; G0378; J0696; J1940; J7512; Q9957; Q9967

== ENCOUNTER 2021-12-27 17:53 | Emergency (ER) | payer OTHER, SELFPAY ==
[2021-12-27] VITALS (8 sets, daily range): BP systolic 122–150; BP diastolic 35–80; PULSE 76–99; RESP 18–37; TEMP 37.6; O2SAT 89–99
--- NOTE | ~2021-12-27 | XR_ITS ---
EXAMINATION: XR chest 2V Exam Date/Time: 12/27/2021 19:13 CDT HISTORY: SOB, COUGH PATIENT HAS A DVT AND PE CURRENTLY HX COVID/HTN Comparison: 12/16/2021. RESULT: Lines, tubes, and devices: None. Lungs and pleura: Diffuse reticular opacities. Indistinct vessels. Mild bilateral angle blunting, sl ightly greater on the left. Cardiomediastinal silhouette: Stable. Other: No acute osseous or upper abdominal finding. IMPRESSION: Interstitial edema. Small bilateral pleural effusions. Reviewed, dictated and finalized at location K.
--- NOTE | 2021-12-27 18:16 | ECG_ITS ---
Measurements Intervals [place] Rate: 90 P: 1 GA: 146 QRS: 27 QRSD: 98 T: 23 QT: 347 QTc: 425 Interpretive Statements SINUS RHYTHM BASELINE ARTIFACT- III, V4 NORMAL ECG COMPARED TO ECG 12/16/2021 10:05:06 NO SIGNIFICANT CHANGES Electronically Signed On 12-27-2021 20:02:27 CDT by [place] D.O.
--- NOTE | 2021-12-27 18:18 | ED.SOB ---
HPI - SOB/Dyspnea General Chief Complaint: Shortness of Breath/Dyspnea Stated Complaint: shortness of breath, cough, fever Time Seen by Provider: 12/27/21 18:18 Source: patient and family Mode of arrival: ambulatory Limitations: no limitations History of Present Illness HPI Narrative: Patient is 66 years old white male came from home by private car complaining of increased shortness of breath since been discharged from our facility on December 18. Patient was discharged home at that time with a new diagnosis of congestive heart failure, he was discharged on Lasix 40 mg once a day. Shortness of breath gradually getting worse, associated with nasal congestion, postnasal discharge, sore throat, chills, productive cough of clear sputum, fever up to 101, patient received Tylenol prior to arrival, feeling weak all over with intermittent to persistent cough. History of COVID infection October 2021, history of deep vein thrombosis and pulmonary embolism, currently on Xarelto. Patient does not take oxygen at home. Related Data Home Medications Medication Instructions Recorded Confirmed loratadine 10 mg capsule 10 mg PO DAILY 11/21/19 12/16/21 acetaminophen 650 mg 650 mg PO Q12H 12/16/21 12/16/21 tablet,extended release multivitamin 1 tablet PO DAILY 12/16/21 12/16/21 Allergies Allergy/AdvReac Type Severity Reaction Status Date / Time No Known Allergies Allergy Verified 12/21/21 11:54 Review of Systems Review of Systems: All systems reviewed & are unremarkable except as noted in HPI and below PMFSH Past Medical History Medical History (Updated 12/27/21 @ 20:51 by Eli José MD) Aortic stenosis Moderate with peak velocity 247 mean gradient of 8 and valve area of 1.2 Arthritis CHF (congestive heart failure) Echo 12/16/2021: Mild left ventricular enlargement, EF greater than 70%, abnormal left ventricular diastolic function, severe left atrial enlargement, mild mitral valve regurgitation, moderate pulmonary hypertension RVSP 48, moderate aortic valve stenosis Chronic anticoagulation Chronic deep vein thrombosis (09/2018) Left popliteal vein. History of COVID-19 Hypertension Mixed hyperlipidemia Psoriasis Pulmonary embolism (~09/2018) With CTA November 2021 demonstrating chronic right lower lobe pulmonary embolism Pulmonary hypertension RVSP of November Surgical History Surgical History No history of previous surgery Family History Family History Mother Liver cancer Father Alcoholism Social History Social History Social History: Surrogate medical decision maker: Lyndsey Bolden, . Code status: Full code. Smoking status: Never smoker Second hand tobacco smoke exposure: No Alcohol intake: never Substance use: never Substance use type: does not use Additional living arrangements comments: Lives with in [place]. They have adult twin daughters. 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 Spiritual care concerns: No Agree to blood products: Yes Exam Narrative: General appearance: Well-developed, well-nourished Skin: Normal color Head: Normocephalic, nontraumatic Eyes: Clear conjunctiva ENT: Oropharynx normal, ears normal, nose normal Neck: Supple, nontender Chest and respiratory: Airway patent, no respiratory distress, no accessory muscle use diminution of air entry bilaterally few scattered rhonchi Heart: Regular rate/rhythm Abdomen: Soft, nontender, no organomegaly, quiet bowel sounds Vascular: Normal peripheral pulses, normal capillary refill. 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
[2021-12-27 18:26] LABS: Basophils Percent Auto 0.2 % (0.2-1.2); Eosinophils Percent Auto 0.3 % (0-4.4); Hematocrit 31.9 % (42.0-52.0); Hemoglobin 10.4 g/dL (14.0-18.0); Immature Granulocyte Absolute 0.03 K/mm3 (0.00-0.031); Immature Granulocyte Percent A 0.3 % (0-0.5); Lymphocytes Absolute Auto 0.91 K/mm3 (0.9-3.2); Lymphocytes Percent Auto 8.8 % (18.3-44.2); Mean Corpuscular HGB Conc 32.6 g/dl (32-36); Mean Corpuscular Volume 91.9 fl (80-100); Mean Platelet Volume 8.6 fl (7.4-10.4); Monocytes Absolute Auto 1.1 K/mm3 (0.1-0.6); Neutrophils Absolute Auto 8.2 K/mm3 (1.3-6.7); Neutrophils Percent Auto 79.4 % (45.5-73.1); Platelet Count Result 232 k/mm3 (150-375); Red Blood Count 3.47 M/mm3 (4.6-6.20); Red Cell Distribution Width 17.3 % (11.5-14.5); White Blood Count 10.4 K/mm3 (4.5-10.0)
[2021-12-27 18:42] LABS: Alanine Aminotransferase 26 U/L (6-50); Albumin Level 3.8 g/dL (3.5-5.1); Alkaline Phosphatase 117 U/L (38-126); Anion Gap 12 mmol/L (8-16); Aspartate Amino Transferase 29 U/L (17-59); Bilirubin,Total 1.1 mg/dL (0.2-1.3); Blood Urea Nitrogen 12 mg/dL (9-20); Calcium 8.3 mg/dL (8.4-10.2); Carbon Dioxide 24 mmol/L (22-30); Chloride 93 mmol/L (98-107); Estimated CRCL calculation 68 ml/min; Estimated Glomerular Filt Rate 60; Glucose 106 mg/dL (65-110); Potassium 4.1 mmol/L (3.4-5.0); Sodium 129 mmol/L (137-145)
--- NOTE | 2021-12-27 18:46 | PCRCNOTE ---
Dr. José went in to examine pt at 18:25, Doctor removed oxygen for trial, RT has ABG ordered, was informed by doctor to wait 15mins before draw. RT returned pt was placed back on Oxygen, waiting another 10 mins before drawing ABG for accurate test. RN informed of late blood drawn.
[2021-12-27 18:58] LABS: Alveolar/Arterial O2 Gradient 97.2 mmHg; Base Excess ABG -1.3 mEq/l (+/-2.0); Fractional Inspired Oxygen 28 %; HCO3 ABG 21.9 mEq/l (22.0-26.0); Oxygen Content ABG 13.4 %vol (16.0-22.0); Oxygen Saturation ABG 94.2 % (95.0-100.0); Oxyhemoglobin 91.2 % THb (90.0-100.0); PCO2 ABG 31.4 mmHg (35.0-45.0); PO2 ABG 65.4 mmHg (80.0-100.0); PO2 FiO2 Ratio Arterial Blood 2.34 %; Total Hemoglobin 10.4 g/dL (12.0-18.0); pH ABG 7.462 (7.350-7.450)
[2021-12-27 19:03] LABS: Magnesium 1.8 mg/dL (1.6-2.3)
[2021-12-27 19:05] LABS: INR 1.7; Partial Thromboplastin Time 42.4 SECONDS (22.3-36.8); Prothrombin Time 19.6 Seconds (11.1-14.7)
[2021-12-27 19:21] LABS: NT Pro B Type Natriuretic Pept 2960 pg/mL (5-100); Troponin I 0.046 ng/mL (0.000-0.034)
[2021-12-27 19:30] LABS: Influenza A QL RT-PCR Negative (Negative); Influenza B QL RT-PCR Negative (Negative); SARS-CoV-2 RNA PCR Negative
[2021-12-29 11:24] LABS: Device NASAL CANNULA
== END 2021-12-27 21:05 | disposition home or self-care (01) ==
PROVIDERS: Emergency Provider Emergency Medicine; PCP Family Medicine
DX: J06.9 Acute upper respiratory infection, unspecified (principal); Z20.822 Contact with and (suspected) exposure to COVID-19; I50.9 Heart failure, unspecified; I82.532 Chronic embolism and thrombosis of left popliteal vein; I35.0 Nonrheumatic aortic (valve) stenosis; I11.0 Hypertensive heart disease with heart failure; E78.2 Mixed hyperlipidemia; I27.20 Pulmonary hypertension, unspecified; M19.90 Unspecified osteoarthritis, unspecified site; Z86.16 Personal history of COVID-19; Z86.711 Personal history of pulmonary embolism; Z79.01 Long term (current) use of anticoagulants
CPT/HCPCS: 36415; 36600; 71046; 80053; 82805; 83735; 83880; 84484; 85025; 85610; 85730; 87040; 87077; 87186; 87502; 93005; 99284; C9803; U0003; U0005

== ENCOUNTER 2021-12-29 11:33 | Outpatient (CLI) | payer OTHER, SELFPAY ==
[2021-12-29 12:06] LABS: Hematocrit 28.9 % (42.0-52.0); Hemoglobin 9.4 g/dL (14.0-18.0); Mean Corpuscular HGB Conc 32.5 g/dl (32-36); Mean Corpuscular Hemoglobin 29.9 pg (26-34); Mean Platelet Volume 8.5 fl (7.4-10.4); Platelet Count Result 192 k/mm3 (150-375); Red Blood Count 3.14 M/mm3 (4.6-6.20); Red Cell Distribution Width 17.2 % (11.5-14.5); White Blood Count 9.5 K/mm3 (4.5-10.0)
[2021-12-29 12:18] LABS: Anion Gap 10 mmol/L (8-16); Blood Urea Nitrogen 14 mg/dL (9-20); Calcium 8.5 mg/dL (8.4-10.2); Carbon Dioxide 21 mmol/L (22-30); Chloride 97 mmol/L (98-107); Estimated Glomerular Filt Rate 60; Glucose 120 mg/dL (65-110); Potassium 3.5 mmol/L (3.4-5.0); Sodium 128 mmol/L (137-145)
== END 2021-12-29 11:34 | disposition home or self-care (01) ==
LOC: ANHLAB 11:34
PROVIDERS: PCP Family Medicine; Visit Provider Family Medicine
DX: R78.81 Bacteremia (principal); R53.83 Other fatigue; E87.1 Hypo-osmolality and hyponatremia
CPT/HCPCS: 36415; 80048; 85027; 87040; 87147; 87181; 87186

== ENCOUNTER 2021-12-31 08:53 | Inpatient (IN) | payer OTHER, SELFPAY ==
[2021-12-31] VITALS (20 sets, daily range): BP systolic 119–148; BP diastolic 34–51; PULSE 75–93; RESP 22–49; TEMP 36.1–36.8; O2SAT 85–100; BMI 38.0
--- NOTE | 2021-12-31 | ECHO_ITS ---
Patient Info Name: Yuan Weiner Age: 66 years : 1955 Gender: Male Ht: 70 in Wt: 260 lbs BSA: 2.46 m2 HR: 82 bpm BP: 134 / 34 mmHg Heart Rhythm: Sinus Rhythm Technical Quality: Fair Exam Date: 12/31/2021 3:53 PM Exam Location: [facility] Patient Status: Inpatient Admit Date: 12/31/2021 Staff Ordering Physician: Alex Pozo MD Assistant Loan Processor: Paola Albert RDCS Attending Provider: Alex Wilcox MD Referring Physician: Nohelia WORTHINGTON; Exam Type: CA echo doppler color flow Study Info Indications - Enteroccocal sepsis Complete two-dimensional, color flow and Doppler transthoracic echocardiogram is performed. Summary 1. Complete two-dimensional, color flow and Doppler transthoracic echocardiogram is performed. 2. Left ventricular chamber dimension is mildly enlarged. 3. Left ventricular systolic function is hyperdynamic, estimated at >70%. 4. There is no increased left ventricular wall thickness. 5. The left ventricular diastolic function is abnormal. 6. There is mild tricuspid valve regurgitation. 7. Mild pulmonary hypertension, estimated pulmonary arterial systolic pressure is 37 mmHg. 8. The aortic valve is probable trileaflet. 9. There is mild aortic valve stenosis with a peak velocity of 267 cm/s, mean gradient of 13 mmHg, and aortic valve area of 2.0 cm2. 10. There is mild aortic valve regurgitation. 11. There is moderate aortic valve calcification. 12. There is trace mitral valve regurgitation. Left Ventricle Left ventricular chamber dimension is mildly enlarged. Left ventricular systolic function is hyperdynamic, estimated at >70%. There is no increased left ventricular wall thickness. The left ventricular diastolic function is abnormal. Right Ventricle Right ventricular chamber dimension is normal. Right ventricular systolic function is normal. Left Atria Left atrial chamber dimension is moderately enlarged. Right Atria Right atrial chamber dimension is mildly enlarged. Aortic Valve The aortic valve is probable trileaflet. There is mild aortic valve stenosis with a peak velocity of 267 cm/s, mean gradient of 13 mmHg, and aortic valve area of 2.0 cm2. There is mild aortic valve regurgitation. There is moderate aortic valve calcification. Pulmonic Valve The pulmonic valve is not well visualized. There is trace pulmonic regurgitation. Mitral Valve The mitral valve has normal leaflets. There is trace mitral valve regurgitation. The mitral valve annulus is mildly calcified. Tricuspid Valve The tricuspid valve leaflets are not well visualized. There is mild tricuspid valve regurgitation. Mild pulmonary hypertension, estimated pulmonary arterial systolic pressure is 37 mmHg. Pericardium/Pleural The pericardium appears normal. There is trivial pericardial effusion. Aorta The aortic root size at the sinus of Valsalva is normal. There is moderate aortic atherosclerosis. Left Ventricular Outflow Tract Name Value Normal LVOT 2D LVOT Diameter 2.1 cm LVOT Doppler LVOT Peak Gradient 10 mmHg LVOT Mean Gradient
--- NOTE | ~2021-12-31 | CT_ITS ---
EXAMINATION: CTA chest PE protocol DATE: 12/31/2021 10:29 INDICATION: Shortness of breath. TECHNIQUE: Computed tomography angiography (CTA) of the chest was performed with 100 mL Omnipaque-350 intravenous contrast timed to evaluate the pulmonary arteries. Coronal maximum intensity projection 3D-reconstructions were created by the technologist. Automated exposure control and iterative reconst ruction technique were employed. The dose-length product was 1126.93 mGy-cm. COMPARISON: Chest CT 12/16/2021, 04/03/21 FINDINGS: The lungs demonstrate smooth septal thickening. There was very groundglass opacities with a perihilar predominance. These findings are consistent with pulmonary edema. There are small pleural effusions. The heart size is normal. No pericardial effusion. There is bandlike thrombus in the pulmo nary artery to right middle lobe and right lower lobe. The central pulmonary arteries are enlarged, c onsistent with pulmonary arterial hypertension. There is mild mediastinal and bilateral hilar lymphad enopathy. There are gallstones in the gallbladder, which is normal in size. There is severe cervical spondylosis and mild thoracic spondylosis. IMPRESSION: 1. Stable small chronic pulmonary embolus on the right. 2. Moderate pulmonary edema with small pleural effusions. 3. Mild mediastinal and bilateral hilar lymphadenopathy, likely reactive. Reviewed, dictated and finalized at location A.
--- NOTE | ~2021-12-31 | XR_ITS ---
XR chest 1V portable DATE: 01/01/2022 12:31 INDICATION: Respiratory failure. History of hypertension and pulmonary embolus TECHNIQUE: Portable upright AP chest on 01/01/2022 at 1225 hours COMPARISON: 12/31/2021 CT pulmonary scan 12/27/2021 2 view chest FINDINGS: Prominent bilateral pulmonary infiltrates which are more prominent centrally and in the low er lung zones, substantially increased since 12/27/2021, suggesting pulmonary edema. Pneumonia is not e xcluded. Mild pleural effusions. No pneumothorax. Heart size appears within normal limits. Diffuse osteopenia. IMPRESSION: Prominent increased bilateral pulmonary infiltrates since 12/27/2021, persistent mild pleur al effusions, suggesting pulmonary edema; pneumonia is not excluded Reviewed, dictated and finalized at location A. IMPRESSION: Prominent increased bilateral pulmonary infiltrates since 12/27/2021, persistent mild pleural effusions, suggesting pulmonary edema; pneumonia is no t excluded
--- NOTE | 2021-12-31 08:54 | ECG_ITS ---
Measurements Intervals [place] Rate: 92 P: 59 NH: 164 QRS: 55 QRSD: 110 T: 27 QT: 371 QTc: 460 Interpretive Statements SINUS RHYTHM ST ABNORMALITY IN ANTEROLAT/INF LEADS- CONSIDER ISCHEMIA BASELINE ARTIFACT- III, AVF, V3-V6 ABNORMAL ECG COMPARED TO ECG 12/27/2021 18:19:17 ST (T WAVE) DEVIATION NOW PRESENT Electronically Signed On 12-31-2021 12:35:57 CDT by [place] D.O.
--- NOTE | 2021-12-31 09:04 | PC.NURSE ---
Pt hypoxic and placed on 6L o2 via nasal cannula. O2 improved to 93%
--- NOTE | 2021-12-31 09:12 | ED.GENADULT ---
HPI - General Adult General Chief complaint: Shortness of Breath/Dyspnea Stated complaint: sob Time Seen by Provider: 12/31/21 08:59 History of Present Illness HPI narrative: Patient with history of PE and DVT presented to the emergency department for evaluation of worsening shortness of breath. Patient had COVID diagnosis in October and recently had a diagnosis of pulmonary embolism on the right lung and right leg DVT. Patient had follow-up with his primary care physician today and was noted to be 79% on room air. Patient has had slowly decreasing hemoglobin. In November it was 11 and today it was 9.4. Patient denies any bloody stools. Primary care physician states that the patient has been noncompliant with treatment previously. Patient does state he has been taking his Xarelto as directed. Patient has been on Xarelto for 3 years due to prior history of PE Related Data Home Medications Medication Instructions Recorded Confirmed loratadine 10 mg capsule 10 mg PO DAILY 11/21/19 12/31/21 acetaminophen 650 mg 650 mg PO Q12H PRN Pain 12/16/21 12/31/21 tablet,extended release multivitamin 1 tablet PO DAILY 12/16/21 12/31/21 Cough Drops 1 dejon PO PRN PRN Cough 12/31/21 12/31/21 albuterol sulfate 90 mcg/actuation 2 puff inhalation Q4H PRN 12/31/21 12/31/21 aerosol inhaler shortness of breath or wheezing cefdinir 300 mg capsule 300 mg PO Q12H 12/31/21 12/31/21 codeine 10 mg-guaifenesin 100 mg/5 5 ml PO Q4-6H 12/31/21 12/31/21 mL oral liquid Allergies Allergy/AdvReac Type Severity Reaction Status Date / Time No Known Allergies Allergy Verified 12/31/21 08:34 Review of Systems Review of Systems: CONSTITUTIONAL: Denies fever, chills, or sweats. EYES: Denies visual changes, redness, or discharge. ENT: Denies rhinorrhea, congestion, sore throat, or otalgia. CARDIOVASCULAR: See HPI, worsening edema RESPIRATORY: Worsening exertional shortness of breath GASTROINTESTINAL: Denies abdominal pain, nausea, vomiting, or diarrhea. GENITOURINARY: Denies dysuria or hematuria. SKIN: Denies rash or itching. MUSCULOSKELETAL: Denies back pain, joint pain, or myalgia. NEUROLOGIC: Denies headache, numbness, or weakness. [facility] Past Medical History Medical History (Updated 12/31/21 @ 19:01 by Jacqueline Michele PA-C) Aortic stenosis Moderate with peak velocity 247 mean gradient of 8 and valve area of 1.2 cm. Arthritis Chronic anticoagulation Chronic deep vein thrombosis (09/2018) Left popliteal vein. Congestive heart failure Echo 12/16/2021: Mild left ventricular enlargement, EF greater than 70%, abnormal left ventricular diastolic function, severe left atrial enlargement, mild mitral valve regurgitation, moderate pulmonary hypertension RVSP 48, moderate aortic valve stenosis. History of COVID-19 Hypertension Mixed hyperlipidemia Psoriasis Pulmonary embolism (~09/2018) With CTA November 2021 demonstrating chronic right lower lobe pulmonary embolism Pulmonary hypertension RVSP of 48 on echo in November 2021. Surgical History Surgical History No history of previous surgery Family History Family History Mother Liver cancer Father Alcoholism Social History Social History Social History: Surrogate medical decision maker: Lyndsey Bolden, . Code status: Full code. Smoking status: Never smoker Second hand tobacco smoke exposure: No Alcohol intake: never Substance use: never Substance use type: does not use Additional living arrangements comments: Lives with in [place]. They have adult twin daughters. 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 Spiritual care concerns: No Agree to blood products: Yes Exam Narrative: APPEARANCE: Well appearing, no pain, no distress, well-nourished. HE
[2021-12-31 09:19] LABS: Basophils Percent Auto 0.2 % (0.2-1.2); Eosinophils Percent Auto 0.3 % (0-4.4); Hematocrit 27.8 % (42.0-52.0); Hemoglobin 9.5 g/dL (14.0-18.0); Immature Granulocyte Absolute 0.06 K/mm3 (0.00-0.031); Immature Granulocyte Percent A 0.6 % (0-0.5); Lymphocytes Absolute Auto 1.17 K/mm3 (0.9-3.2); Mean Corpuscular HGB Conc 34.2 g/dl (32-36); Mean Corpuscular Hemoglobin 30.1 pg (26-34); Mean Platelet Volume 8.7 fl (7.4-10.4); Monocytes Absolute Auto 1.1 K/mm3 (0.1-0.6); Monocytes Percent Auto 9.8 % (2.6-8.5); Neutrophils Absolute Auto 8.3 K/mm3 (1.3-6.7); Neutrophils Percent Auto 78.1 % (45.5-73.1); Platelet Count Result 231 k/mm3 (150-375); Red Blood Count 3.16 M/mm3 (4.6-6.20); Red Cell Distribution Width 16.6 % (11.5-14.5); White Blood Count 10.7 K/mm3 (4.5-10.0)
[2021-12-31 09:23] LABS: Alveolar/Arterial O2 Gradient 180.5 mmHg; Base Excess ABG -2.3 mEq/l (+/-2.0); Fractional Inspired Oxygen 44 %; HCO3 ABG 20.7 mEq/l (22.0-26.0); Oxygen Content ABG 13.2 %vol (16.0-22.0); Oxyhemoglobin 96.2 % THb (90.0-100.0); PCO2 ABG 29.3 mmHg (35.0-45.0); PO2 ABG 99.8 mmHg (80.0-100.0); PO2 FiO2 Ratio Arterial Blood 2.27 %; Total Hemoglobin 9.6 g/dL (12.0-18.0); pH ABG 7.467 (7.350-7.450)
[2021-12-31 09:24] LABS: Device NASAL CANNULA; Modified Allen's Test Pass; Site Drawn RIGHT RADIAL
[2021-12-31 09:31] LABS: Alanine Aminotransferase 37 U/L (6-50); Albumin Level 3.4 g/dL (3.5-5.1); Alkaline Phosphatase 108 U/L (38-126); Anion Gap 14 mmol/L (8-16); Aspartate Amino Transferase 32 U/L (17-59); Blood Urea Nitrogen 18 mg/dL (9-20); Calcium 8.1 mg/dL (8.4-10.2); Carbon Dioxide 20 mmol/L (22-30); Chloride 93 mmol/L (98-107); Estimated CRCL calculation 63 ml/min; Estimated Glomerular Filt Rate 55; Glucose 158 mg/dL (65-110); Potassium 3.5 mmol/L (3.4-5.0); Sodium 127 mmol/L (137-145)
--- NOTE | 2021-12-31 09:31 | PC.NURSE ---
Pt O2 dropped down to 4L
[2021-12-31 09:38] LABS: INR 2.5
[2021-12-31 09:39] LABS: Partial Thromboplastin Time 49.7 SECONDS (22.3-36.8)
[2021-12-31 09:49] LABS: NT Pro B Type Natriuretic Pept 6600 pg/mL (5-100); Troponin I 0.073 ng/mL (0.000-0.034)
--- NOTE | 2021-12-31 10:19 | PC.NURSE ---
Pt to radiology on stretcher.
[2021-12-31] MEDS: FUROSEMIDE INJ 40 MG/4 ML VIAL IV PUSH ×2 (10:56→21:14)
--- NOTE | 2021-12-31 12:11 | PC.NURSE ---
Pt O2 was in the low 90's on 4L, attempted simple mask without much success. MD at bedside who will order bipap.
--- NOTE | 2021-12-31 13:00 | PM.IMHP ---
H&P: HPI History of Present Illness Date/Time: 12/31/21 13:00 Chief Complaint: Shortness of breath. Narrative: This is a very pleasant 66-year-old male with history of bilateral PE and DVT on long-term anticoagulation, aortic valve stenosis, pulmonary hypertension, diastolic dysfunction, and hyperlipidemia who presented to the ED via private vehicle from home for evaluation of shortness of breath. He had COVID in mid October and completed a course of Paxlovid but unfortunately he never really which going to baseline with lingering cough and shortness of breath. He was started on furosemide and [place] for lower extremity swelling and he was also given a course of prednisone and doxycycline for presumed lower respiratory tract infection. He was admitted to the hospital on 12/16/2021 with suspected new onset congestive heart failure and echocardiogram at that time showed mildly enlarged LV chamber with normal systolic function EF of greater than 70%, diastolic dysfunction, moderate aortic valve stenosis, and moderate pulmonary hypertension. He was diuresed with marked improvement was discharged home 2 days thereafter. Within a week or so he once again started having increasing shortness of breath in addition to several other symptoms including nasal congestion, sore throat, cough productive of clear phlegm, generalized weakness, poor appetite, diarrhea, chills, and fever. He was seen in the ER on 12/27/2021 and was told that he likely had a viral syndrome. His Lasix was increased for couple of days due to pulmonary edema on chest x-ray. Unfortunately has not felt much better and today he was directed to the emergency department after blood cultures drawn at that ER visit came back positive for Enterococcus faecalis. On arrival to the emergency department today his SpO2 was 79% on room air and he was tachycardic and tachypneic. His blood pressures were stable. Due to work of breathing he was started on BiPAP; ABG showed a pH of 7.467, pCO2 29.3, PO2 99.8, and bicarb 20.7. Pertinent labs include a white blood cell count of 10.7, stable hemoglobin and hematocrit, INR 2.5, sodium 127, troponin 0.081, CRP 14.2, proBNP 6600. Urinalysis was unremarkable. Chest x-ray showed interstitial edema and small bilateral pleural effusions. CT of the chest showed stable, small chronic pulmonary embolus on the right and moderate pulmonary edema with small pleural effusions. The patient has subsequently been admitted with acute respiratory failure with hypoxia, congestive heart failure exacerbation, and Enterococcus faecalis bacteremia. He was given furosemide 40 mg IV x1 as well as 1750 mg of vancomycin in the ED. At the time my evaluation he is tolerating the BiPAP okay though he continues to cough. He denies chest and pleuritic pain, palpitations, nausea, vomiting, syncope, and presyncope. Review of Systems Review of Systems: Twelve systems were reviewed. No headache or neck ache. He has sinus congestion, mainly in the right naris. No epistaxis. No ear pain. No dysphagia. Appetite has not been great. No vomiting. Diarrhea has resolved. No dysuria or other urinary symptoms. He denies sick contacts. He continues to have orthopnea and lower extremity edema which have been present for nearly a month. Except as documented, all other systems were reviewed and are negative. [facility] Past Medical History Medical History (Updated 12/31/21 @ 19:01 by Jacqueline Michele PA-C) Aortic stenosis Moderate with peak velocity 247 mean gradient of 8 and valve area of 1.2 cm. Arthritis Chronic anticoagulation Chronic deep vein thrombosis (09/2018) Left popliteal vein. Congestive heart failure Echo 12/16/2021: Mild left ventricular enlargement, EF greater than 70%, abnormal left ventricular diastolic function, severe left atrial enlargement, mild mitral valve regurgitation, moderate pulmonary hypertension RVSP 48, moderate aortic valve stenosis. History of COVID-19 Hypertension Mixed hyperlipidemia
[2021-12-31 13:34] LABS: Appearance Urine Clear (Clear); Bilirubin Urine Negative (Negative); Blood Urine Negative (Negative); Color Urine Yellow (Yellow); Glucose Urine UA Negative (Negative); Ketones Urine Negative (Negative); Leukocyte Esterase Ur Negative LEU/UL (Negative); Nitrate Urine Negative (Negative); Protein Urine Negative (Negative); Specific Grav Ur <= 1.005 (1.001-1.035); Urobilinogen Urine 0.2 mg/dL (<2.0); pH Urine 5.5 (5.0-9.0)
[2021-12-31 13:35] LABS: Creatinine Urine 37.3 mg/dL; Urea Random Urine 192 MG/DL
[2021-12-31 13:36] LABS: Lactic Acid Reflex 1.7 mmol/L (0.7-2.0)
[2021-12-31 13:39] LABS: Sodium Urine Random 22 meq/L
--- NOTE | 2021-12-31 13:59 | PM.CNCAR ---
Assessment and Plan Assessment and plan (1) Pulmonary edema: Code(s): J81.1 - Chronic pulmonary edema Status: Acute (2) Septicemia: Code(s): A41.9 - Sepsis, unspecified organism Status: Acute (3) Hypoxia: Code(s): R09.02 - Hypoxemia Status: Acute Plan This is a 66-year-old man admitted to the hospital with progressively worsening shortness of breath he has a febrile illness and he is got positive blood cultures for Enterococcus. I do not see any obvious physical exam evidence of a bacterial endocarditis or a significant mitral regurgitant lesion. He should have his echocardiogram repeated this afternoon to ensure that he does not develop new aortic or mitral regurgitation compared to the recent exam. The patient at this moment cannot have a transesophageal echo done since his oxygenation is tenuous and that procedure would require intubating him as he cannot be sedated enough to do a esophageal ECHO procedure otherwise at this time. If he does have significant mitral or aortic valve regurgitation the obvious concern would be for subacute bacterial endocarditis and he already has been started on intravenous vancomycin for that. Alex Pozo MD [facility] History of Present Illness History of Present Illness Consult date/time: 12/31/21 13:59 Reason For Visit: CHF/Hypoxia/Septicemia Narrative: This is a 66-year-old man who is unknown to me in reports no previous cardiac problems in the past. I am seeing him in the emergency room at the request of the hospitalist because they were concerned about the possibility of bacterial endocarditis. Patient has been feeling ill since October of this year when he developed a coronavirus and was I believe treated as an outpatient. He recovered from the coronavirus infection but since then he has been feeling poorly with worsening shortness of breath from his baseline status. He was in the emergency room here several days ago on the reporting symptoms of dyspnea and I think had a fever at that time and blood cultures were done. He was treated in the emergency room and released. Since then his shortness of breath has progressively worsened to shortness of breath with very minimal activity. He was struggling to breathe earlier today this morning and came back into the hospital his saturations were apparently low and he was placed on a BiPAP he was currently still in the emergency room 6. On a BiPAP device and says he feels much better. Outside of the hospital he has been running a temperature between 100 and 101.5?. He has not had any shaking chills. He has said some diarrhea. The blood cultures that were drawn several days ago have become positive for Enterococcus. In this setting I am seeing him in consultation. He did have a echocardiogram done when he was hospitalized for this on 12/16/2021. The study did not demonstrate any evidence of vegetations or any significant regurgitant lesions of his aortic or mitral valve. He has modest aortic valve sclerosis and hyperdynamic left ventricular systolic function. Review of Systems Constitutional: Constitutional: Reports as per HPI Eyes: Eyes: Reports no additional eye complaints ENT: Reports system reviewed and no additional complaints, except as documented Cardiovascular: Cardiovascular: Reports no additional cardiovascular complaints Respiratory: Respiratory: Reports dyspnea Gastrointestinal: Gastrointestinal: Reports no additional gastrointestinal complaints Musculoskeletal: Musculoskeletal: Reports no additional musculoskeletal complaints Integumentary/Breasts: Skin/Breast: Reports system reviewed and no additional complaints, except as docu Endocrine: Endocrine: Reports no additional endocrine complaints Hematologic/Lymphatic: Hematologic/Lymphatic: Reports no additional hematologic/lymphatic complaints Allergic/Immunologic: Allergic/Immunologic: Reports no additional allergic/immunologic complain
--- NOTE | 2021-12-31 14:05 | ADMGEN ---
This patient, Yuan Weiner Jr., was admitted to IMU Room 204-01. Patient/family oriented to hospital policies and general routines including ID bracelet, bed and alarms, visiting hours, pain management, procedures, bathroom and other care routines, personal items, smoking policy, room service/diet, and visiting hours. Information on how to activate the Rapid Response Team has been discussed. Patient/Family are encouraged to report perceived risks to care and to ask questions if they do not understand what they are told or what they should do.
[2021-12-31 14:06] LABS: Mucus Urine Rare /lpf; Squamous Epithelial Cell Urine Rare /hpf (Few); WBC Urine 0-3 /hpf
[2021-12-31 14:13] LABS: Add Urine Microscopic? NO
[2021-12-31 14:14] LABS: CRP 14.2 mg/dL (<1.0)
--- NOTE | 2021-12-31 14:54 | IDPHARM ---
[facility] was consulted by Silvia Michele regarding infectious diseases for Yuan Weiner Jr.. Yuan Weiner Jr. is a 66 year old M with concerns regarding Enterococcus faecalis bacteremia with concerns for endocarditis. Background The patient is currently receiving Vancomycin IV. The patient's PHI/PMH includes COVID, worsening SOB, fever and valvular regurgitation. Additionally, the patient's blood cultures are currently positive from 12/27 and 12/29 each showing enterococcus faecalis with repeat blood cultures and urine cultures ordered 12/31 (today). 12/27 isolate is sensitive to ampicillin and vancomycin. Creatinine clearance currently appears to be >50 mL/min. Assessment/Recommendation/Discussion Discussed Yuan's case with consulting provider and provider has suspicion of endocarditis and is seeking CHARLENE to further inform this diagnosis. Given this strong concern, patient is to be converted to and enterococcal-endocarditis treatment regimen with high dose ampicillin and twice daily ceftriaxone and hopefully de-escalation may occur should endocarditis be ruled out. Thank you for the interesting consult. Wesley Sanchez, PharmD Infectious Disease/Antimicrobial Stewardship Pharmacist 12/31/21; [id number]
[2021-12-31] MEDS: IPRATROPIUM NASAL SPRAY 0.06% 15 ML BOTTLE 2 SPRAY NASAL ×2 (17:53→21:13)
[2021-12-31] MEDS: AMPICILLIN 2 GM/NS 100 ML 2 GM/100 ML BAG IVPB ×2 (17:54→21:05)
[2021-12-31 18:07] LABS: Anion Gap 13 mmol/L (8-16); Blood Urea Nitrogen 18 mg/dL (9-20); Calcium 8.1 mg/dL (8.4-10.2); Carbon Dioxide 21 mmol/L (22-30); Chloride 93 mmol/L (98-107); Estimated CRCL calculation 68 ml/min; Estimated Glomerular Filt Rate 60; Glucose 115 mg/dL (65-110); Magnesium 1.9 mg/dL (1.6-2.3); Potassium 3.8 mmol/L (3.4-5.0); Sodium 127 mmol/L (137-145)
[2021-12-31 18:24] LABS: Troponin I 0.081 ng/mL (0.000-0.034)
[2021-12-31 18:55] LABS: Procalcitonin 0.5 ng/mL
--- NOTE | 2021-12-31 19:28 | PC.NURSE ---
Per Pt, she has a Morphine pain pump in abdomen for chronic back pain. [place] [address] Luis Landaverde who has offices in [place] and [place]. She believes that it is refilled monthly at her home and has an RN scheduled to refill her pump On Monday, January 05. Her pain pump releases a dose at 6 am and 6 pm.
[2021-12-31] MEDS: cefTRIAXone 2 GM in SODIUM CHLORIDE 0.9% IV 100 ML 200 ML IVPB (21:40)
[2021-12-31] MEDS: FLUTICASONE/SALMETEROL 45-21 MCG INHALER 1 PUFF 2 PUFF INHALATION (22:32)
[2022-01-01] VITALS (13 sets, daily range): BP systolic 121–158; BP diastolic 41–49; PULSE 73–91; RESP 18–37; TEMP 36.1–36.9; O2SAT 94–97
--- NOTE | 2022-01-01 | ECHOL_ITS ---
Patient Info Name: Yuan Weiner Age: 66 years : 1955 Gender: Male Ht: 70 in Wt: 265 lbs BSA: 2.49 m2 HR: 82 bpm BP: 121 / 49 mmHg Heart Rhythm: Sinus Rhythm Exam Date: 01/01/2022 12:09 PM Exam Location: [facility] Patient Status: Inpatient Admit Date: 12/31/2021 Staff Ordering Physician: Luis Mendieta MD Profile Grinder: Elysia Meza RDCS Attending Provider: Alex Wilcox MD Referring Physician: Anam QUINN; Exam Type: CA echo limited Study Info Indications J96.90 - Respiratory failure, unspecified, unspecified whether with hypoxia or hypercapnia Limited two-dimensional transthoracic echocardiogram is performed. Summary 1. Left ventricular chamber dimension is normal. 2. Left ventricular systolic function is normal, estimated at >70%. 3. There is mildly increased left ventricular wall thickness. 4. The aortic valve is probable trileaflet. Suspicion for echodensity probable left coronary cusp. Arotic regurgitation is at least mild but difficult to characterize with color flow doppler. However, continuous wave doppler reveals a decreased pressure half time, evidence for early mitral valve closure and diminished A wave. Furthermore, there is holodiastolic flow reversal in the abdominal aorta suggestive of more severe aortic regurgitation. 5. The mitral valve has normal leaflets. 6. There is mild mitral valve regurgitation. Recommendations * Recommend transesophageal echocardiogram. Left Ventricle Left ventricular chamber dimension is normal. Left ventricular systolic function is normal, estimated at >70%. There is mildly increased left ventricular wall thickness. Right Ventricle Right ventricular chamber dimension is normal. Right ventricular systolic function is normal. Aortic Valve The aortic valve is probable trileaflet. Suspicion for echodensity probable left coronary cusp. Arotic regurgitation is at least mild but difficult to characterize with color flow doppler. However, continuous wave doppler reveals a decreased pressure half time, evidence for early mitral valve closure and diminished A wave. Furthermore, there is holodiastolic flow reversal in the abdominal aorta suggestive of more severe aortic regurgitation. There is mild aortic valve calcification. Pulmonic Valve The pulmonic valve is not well visualized. Mitral Valve The mitral valve has normal leaflets. There is mild mitral valve regurgitation. The mitral valve annulus is mildly calcified. Tricuspid Valve The tricuspid valve leaflets are normal. There is mild tricuspid valve regurgitation. Pericardium/Pleural The pericardium appears normal. There is trivial pericardial effusion. Aorta The aortic root size at the sinus of Valsalva is normal. There is mild-moderate aortic atherosclerosis. Ventricles Name Value Normal LV Dimensions 2D/MM IVS Diastolic Thickness (2D) 1.0 cm 0.6-1.0 LVID Diastole (2D) 5.5 cm 4.2-5.8 LVIW Diastolic Thickness (2D) 1.0 cm 0.6-1.0 LVID Systole (2D) 3.3 cm 2.5-4.0 LV Mass (2D Cubed) 223.19 g 88.00-224.00 LV Mass Index (2D Cubed) 90 g/m2 49-115 Relative Wall Thickness (
[2022-01-01] MEDS: guaiFENesin/CODEINE (*CRX) 200/20 MG 10 ML SYRUP 5 ML PO (01:07)
[2022-01-01] MEDS: AMPICILLIN 2 GM/NS 100 ML 2 GM/100 ML BAG IVPB ×5 (01:10→16:09)
[2022-01-01 04:57] LABS: Basophils Percent Auto 0.2 % (0.2-1.2); Eosinophils Absolute Auto 0.1 K/mm3 (0-0.3); Eosinophils Percent Auto 0.6 % (0-4.4); Hematocrit 28.1 % (42.0-52.0); Immature Granulocyte Absolute 0.08 K/mm3 (0.00-0.031); Immature Granulocyte Percent A 0.7 % (0-0.5); Lymphocytes Absolute Auto 1.05 K/mm3 (0.9-3.2); Lymphocytes Percent Auto 9.1 % (18.3-44.2); Mean Corpuscular Hemoglobin 29.2 pg (26-34); Mean Corpuscular Volume 91.2 fl (80-100); Mean Platelet Volume 8.8 fl (7.4-10.4); Monocytes Absolute Auto 1.1 K/mm3 (0.1-0.6); Monocytes Percent Auto 9.5 % (2.6-8.5); Neutrophils Absolute Auto 9.2 K/mm3 (1.3-6.7); Neutrophils Percent Auto 79.9 % (45.5-73.1); Platelet Count Result 242 k/mm3 (150-375); Red Blood Count 3.08 M/mm3 (4.6-6.20); Red Cell Distribution Width 16.7 % (11.5-14.5); White Blood Count 11.5 K/mm3 (4.5-10.0)
[2022-01-01 05:24] LABS: Alanine Aminotransferase 39 U/L (6-50); Albumin Level 3.2 g/dL (3.5-5.1); Alkaline Phosphatase 101 U/L (38-126); Anion Gap 12 mmol/L (8-16); Aspartate Amino Transferase 32 U/L (17-59); Bilirubin,Total 0.7 mg/dL (0.2-1.3); Blood Urea Nitrogen 18 mg/dL (9-20); CRP 12.5 mg/dL (<1.0); Calcium 7.9 mg/dL (8.4-10.2); Carbon Dioxide 24 mmol/L (22-30); Chloride 93 mmol/L (98-107); Estimated CRCL calculation 68 ml/min; Estimated Glomerular Filt Rate 60; Glucose 130 mg/dL (65-110); Potassium 3.6 mmol/L (3.4-5.0); Sodium 129 mmol/L (137-145)
[2022-01-01] MEDS: FLUTICASONE/SALMETEROL 45-21 MCG INHALER 1 PUFF 2 PUFF INHALATION (07:55)
[2022-01-01] MEDS: cefTRIAXone 2 GM in SODIUM CHLORIDE 0.9% IV 100 ML 200 ML IVPB (08:51)
[2022-01-01] MEDS: POTASSIUM CHLORIDE 10 MEQ TABLET.ER PO (09:32)
[2022-01-01] MEDS: RIVAROXABAN 10 MG TABLET PO (09:32)
[2022-01-01] MEDS: MULTIVITAMINS THERAPEUTIC TAB (*BKC) 1 TABLET PO (09:33)
[2022-01-01] MEDS: IPRATROPIUM NASAL SPRAY 0.06% 15 ML BOTTLE 2 SPRAY NASAL ×3 (09:33→16:09)
[2022-01-01] MEDS: ATORVASTATIN 20 MG TABLET PO (09:33)
[2022-01-01] MEDS: FUROSEMIDE INJ 40 MG/4 ML VIAL IV PUSH ×2 (09:33→16:08)
[2022-01-01] MEDS: LORATADINE 10 MG TABLET PO (09:33)
--- NOTE | 2022-01-01 11:21 | PM.PNCARD ---
Progress Note: A&P Assessment and Plan (1) Diastolic murmur: Code(s): I38 - Endocarditis, valve unspecified Status: Acute Assessment and Plan: Exam suggestive prominent diastolic murmur not previously documented concerning for acute aortic regurgitation in setting of Enterococcus bacteremia clinically suggestive and concerning for endocarditis. Patient remains hypoxic requiring noninvasive positive pressure ventilation and tachypneic. He is currently hemodynamically stable. Repeat ECHO last night revealed at least mild aortic regurgitation otherwise could not be further characterized but Doppler suggests potentially more. Repeat stat bedside 2D echo to assess for further progression of aortic regurgitation. Discussed with patient and family at bedside at great length and with critical care initial need for intubation transferred to ICU in transesophageal echocardiogram if unable to clarify further by bedside echocardiogram. If severe acute aortic regurgitation related to endocarditis patient needs to be urgently transferred to outside tertiary facility with Cardiothoracic Surgical Services. Patient and family verbalized understanding and agreed with plan of care. Further recommendation to follow. Agree with empiric treatment with intravenous antibiotics for coverage for endocarditis. Of noted concern cardiac size is normal clear evidence of decompensated heart failure clinically AV suggestive of were severe acute aortic regurgitation. Discussed with family potential dangers clinical circumstances risk for hemodynamic compromise, further respiratory failure and potential need for transfer to an outside facility capable of performing aortic valve surgery/replacement if aortic valve endocarditis is identified/confirmed. Repeat stat bedside 2D echocardiogram unable to further elucidate severe aortic regurgitation and appears similar to the previous 2 echocardiograms. My suspicion is that aortic regurgitation is more than mild but I cannot confirm severe. RV and LV function remains intact. He does not have significant mitral valve disease and pulmonary pressures are minimally elevated. However, on this most recent echocardiogram with live views I have a strong clinical suspicion there is a mobile echodensity consistent with vegetation most likely on the left coronary cusp. Furthermore, given various echocardiographic parameters which support more severe aortic regurgitation coupled with the patient's tenuous clinical status and BiPAP dependence patient would be best served transferred to [facility] with cardiothoracic surgical consultation today. I discussed with Cardiothoracic surgery Dr. Holbrook and conferred with my colleague Dr. Jean who are in agreement. Dr. Holbrook requested pt to be admitted to the ICU initially given BiPAP dependence and expectation he will require intubation especially for CHARLENE. Discussed with the [facility] transfer line to admit to hospitalist service, however, they do not follow the pt in ICU so that falls to the CCP. I spoke with Dr. Maddison Rubin and informed of this patient and his clinical status after which she graciously accepted. Admitting attending Dr. Holbrook. Update the hospitalist service at [facility] as well as the family who were very appreciative of the care he has received, updates and Education and agree wholeheartedly with the transfer plans. (2) Acute heart failure with preserved ejection fraction (HFpEF): Code(s): I50.31 - Acute diastolic (congestive) heart failure Status: Acute Assessment and Plan: Highly concerning in the setting of Enterococcus bacteremia with preserved LV systolic function in fact hyperdynamic LV systolic function. Past acute pulmonary edema respiratory failure requiring noninvasive positive pressure ventilation may be related to more severe and or progressive aortic regurgitation and previously appreciated (3) Enterococcal bacteremia: Code(
[2022-01-01 12:46] LABS: Alveolar/Arterial O2 Gradient 100.9 mmHg; Base Excess ABG -1.5 mEq/l (+/-2.0); Fractional Inspired Oxygen 30 %; HCO3 ABG 22.3 mEq/l (22.0-26.0); Oxygen Content ABG 14.1 %vol (16.0-22.0); Oxygen Saturation ABG 95.2 % (95.0-100.0); PCO2 ABG 34.2 mmHg (35.0-45.0); PO2 ABG 72.8 mmHg (80.0-100.0); PO2 FiO2 Ratio Arterial Blood 2.43 %; Total Hemoglobin 10.7 g/dL (12.0-18.0); pH ABG 7.432 (7.350-7.450)
[2022-01-01 12:47] LABS: Device BIPAP; Expiratory Pressure 7 cmH2O; Inspiratory Pressure 14 cmH2O; Modified Allen's Test Pass; Site Drawn LEFT RADIAL
[2022-01-01 13:21] LABS: NT Pro B Type Natriuretic Pept 7640 pg/mL (5-100)
--- NOTE | 2022-01-01 13:24 | WPDCNINT ---
Assessment and Plan Assessment and plan (1) Acute respiratory failure with hypoxia: Code(s): J96.01 - Acute respiratory failure with hypoxia Status: Acute Assessment and Plan: patient presented with acute respiratory failure secondary to what appears to be pulmonary edema distant heart failure. Chest x-ray and CT scan shows bilateral diffuse infiltrates, chronic small PE and small effusions ABG reviewed and shows hyperventilation but with compensated pH chest x-ray today shows persistent diffuse bilateral infiltrates BNP 7640 He is on BiPAP but only on 30% FiO2. his tachypnea may also be related to anxiety clinically he states he is feeling better from respiratory standpoint, continue BiPAP at this time and continue diuresis with Lasix. Change Lasix to q[address] Friend catheter for accurate intake and output (2) Endocarditis: Code(s): I38 - Endocarditis, valve unspecified Status: Acute Assessment and Plan: Patient had positive blood cultures drawn on 12/27 and 12/29 with Enterococcus faecalis which was pansensitive TTE was performed by Cardiology as bedside it appears the patient does have vegetation suggestive of endocarditis. Due to patient's habitus the pictures were not excellent and vegetation and regurgitation could not be delineated in detail. patient is on appropriate antibiotics ampicillin and Rocephin Option of CHARLENE was discussed with patient. per cardiology, He will need intubation mechanical ventilation due to his tachypnea for effective and safe CHARLENE. Dr. Mendieta discussed in detail with patient regarding benefits of performing CHARLENE. I also Explained him the risks and benefits of intubation and mechanical ventilation. we did discuss the possibility him improving from respiratory standpoint with diuretics. Patient at this time does not want to go on a ventilator and wants to hold on CHARLENE if that means will need intubation and mechanical ventilation. He states that he would take the possibility of him feeling better and next 24 hours and then tolerating CHARLENE without intubation. He is agreeable to intubation if his respiratory status deteriorate or if he does not improve. Patient's daughter and son-in-law were at bedside and part of the discussion (3) Enterococcal bacteremia: Code(s): R78.81 - Bacteremia; B95.2 - Enterococcus as the cause of diseases classified elsewhere Status: Acute (4) Acute heart failure with preserved ejection fraction (HFpEF): Code(s): I50.31 - Acute diastolic (congestive) heart failure Status: Acute (5) Aortic stenosis: Code(s): I35.0 - Nonrheumatic aortic (valve) stenosis Status: Acute (6) Congestive heart failure: Code(s): I50.9 - Heart failure, unspecified Status: Acute (7) Pulmonary edema: Code(s): J81.1 - Chronic pulmonary edema Status: Acute (8) History of pulmonary embolus (PE): Code(s): Z86.711 - Personal history of pulmonary embolism Status: Acute Assessment and Plan: history of DVT. Patient is on Xarelto Plan Patient will stay in IMU at this point under care of IM and Cardiology. He will be transferred to ICU if his respiratory or hemodynamic status deteriorate or if he needs intubation for CHARLENE. Case discussed with Cardiology and Dr. Flood Collection Specialist Consult Note Consult date: 01/01/22 Reason for consult: Acute respiratory failure HPI: Yuan Stillkatlin Hanna is a 66 year old male with past medical history of PE and DVT on long-term anticoagulation, mildaortic valve stenosis, pulmonary hypertension, diastolic dysfunction, and hyperlipidemia who presented to the ED yesterday shortness of. Patient had COVID in mid October and completed a course of Paxlovid and was feeling better but started having shortness of breath few weeks ago. Shortness of breath was as stated with coughing which had blood-tinged sputum. Over last week or so patient has
--- NOTE | 2022-01-01 14:46 | PM.IMPN ---
Progress Note: A&P Assessment and Plan (1) Acute respiratory failure with hypoxia: Code(s): J96.01 - Acute respiratory failure with hypoxia Status: Acute Assessment and Plan: Patient's SpO2 was 79% on room air on arrival to the ED; he is currently on BiPAP with symptomatic improvement and stable oxygen levels. CTA of the chest showed stable, small chronic pulmonary embolus on the right and moderate pulmonary edema with small pleural effusions. Continue diuresis and wean BiPAP/oxygen as tolerated. 01/01/2022 interval history: patient is 66-year-old male moderately obese presented with a persistent shortness of breath seen by cardiology and patient has new new aortic regurgitation with Enterococcus bacteremia concerning for endocarditis, patient pulmonary condition is poor and would not be able to tolerate CHARLENE to further assess endocarditis however patient will require intubation, diagnostics tech consulted java support engineer and patient refused intubation, patient is being diuresed and Lasix 40 mg b.i.d.was increased to t.i.d., discussed with java support engineer, will monitor reassess patient tomorrow. (2) Enterococcal bacteremia: Code(s): R78.81 - Bacteremia; B95.2 - Enterococcus as the cause of diseases classified elsewhere Status: Acute Assessment and Plan: Source is unclear at this time. His urinalysis is unremarkable and his diarrhea has resolved. With his recent cardiac issues (pleural effusions, pulmonary edema, lower extremity edema) we have to consider [place] valve endocarditis and thus he has been started on empiric ampicillin 200 mg q.4 hours and ceftriaxone 2 mg q.12 hours. Case was discussed with a ROZINA Mccormack pharmacist. Repeat blood cultures pending. Cardiology consulted for CHARLENE. (3) Pulmonary edema: Code(s): J81.1 - Chronic pulmonary edema Status: Acute Assessment and Plan: He has been started on IV Lasix 40 mg b.i.d. for findings of moderate pulmonary edema and small effusions on chest CTA. Monitor his renal function daily and volume status closely with strict I/ O and daily weights. (4) Diastolic dysfunction: Code(s): I51.89 - Other ill-defined heart diseases Status: Acute Assessment and Plan: Echocardiogram last month showed abnormal diastolic function with normal EF of greater than 70%. He continues to have lower extremity edema and pulmonary edema as above. Moderate pulmonary hypertension was also noted on recent echo. (5) Aortic stenosis: Code(s): I35.0 - Nonrheumatic aortic (valve) stenosis Status: Acute Assessment and Plan: Moderate aortic stenosis noted on recent echocardiogram as detailed above. Continue judicious IV diuresis with close monitoring of volume status. (6) Hyponatremia: Code(s): E87.1 - Hypo-osmolality and hyponatremia Status: Acute Assessment and Plan: Sodium has drifted down over the past couple of weeks though has been stable over the last 5 days. May very well be due to excess fluid on board. Continue to monitor sodium while cautiously diuresing. Check FeUrea and urine and serum osmolalities.. (7) Elevated troponin: Code(s): R77.8 - Other specified abnormalities of plasma proteins Status: Acute Assessment and Plan: Troponin has been consistently elevated and is flat. Not indicative of acute coronary syndrome. (8) Chronic anticoagulation: Code(s): Z79.01 - snf (current) use of anticoagulants Status: Acute Assessment and Plan: Continue rivaroxaban which he takes for history of DVT and PE. Subjective Date/time seen: 01/01/22 14:46 01/01/2022 interval history: patient is 66-year-old male moderately obese presented with a persistent shortness of breath seen by cardiology and patient has new new aortic regurgitation with Enterococcus bacteremia concerning for endocarditis, patient pulmonary condition is poor and would not be able to lea
--- NOTE | 2022-01-01 15:49 | PM.TDS ---
Transfer Discharge Sum: Prov Provider Date of admission: 12/31/21 12:46 Primary care physician: Alison Gonzalez MD Admitting clinician: Alex Wilcox MD Consults: 12/31/21 Consult to Physician Routine Comment: Consulting Provider: Brandon Adorno Reason for consultation: request CHARLENE, worsening heart failure Has provider been notified: Yes 12/31/21 14:51 Consult Infectious Disease Pharmacist Routine Comment: DS: Admitting Diagnosis Discharge Date 01/01/2022 Admitting Diagnosis shortness of breath DS: Discharge Diagnosis Discharge Diagnosis (1) Acute respiratory failure with hypoxia: Code(s): J96.01 - Acute respiratory failure with hypoxia Status: Acute Assessment and Plan: Patient's SpO2 was 79% on room air on arrival to the ED; he is currently on BiPAP with symptomatic improvement and stable oxygen levels. CTA of the chest showed stable, small chronic pulmonary embolus on the right and moderate pulmonary edema with small pleural effusions. Continue diuresis and wean BiPAP/oxygen as tolerated. 01/01/2022 interval history: patient is 66-year-old male moderately obese presented with a persistent shortness of breath seen by cardiology and patient has new new aortic regurgitation with Enterococcus bacteremia concerning for endocarditis, patient pulmonary condition is poor and would not be able to tolerate CHARLENE to further assess endocarditis however patient will require intubation, instructional technology teacher consulted credit report checker and patient refused intubation, patient is being diuresed and Lasix 40 mg b.i.d.was increased to t.i.d., discussed with credit report checker, will monitor reassess patient tomorrow. (2) Enterococcal bacteremia: Code(s): R78.81 - Bacteremia; B95.2 - Enterococcus as the cause of diseases classified elsewhere Status: Acute Assessment and Plan: Source is unclear at this time. His urinalysis is unremarkable and his diarrhea has resolved. With his recent cardiac issues (pleural effusions, pulmonary edema, lower extremity edema) we have to consider [place] valve endocarditis and thus he has been started on empiric ampicillin 200 mg q.4 hours and ceftriaxone 2 mg q.12 hours. Case was discussed with a ROZINA Mccormack pharmacist. Repeat blood cultures pending. Cardiology consulted for CHARLENE. (3) Pulmonary edema: Code(s): J81.1 - Chronic pulmonary edema Status: Acute Assessment and Plan: He has been started on IV Lasix 40 mg b.i.d. for findings of moderate pulmonary edema and small effusions on chest CTA. Monitor his renal function daily and volume status closely with strict I/ O and daily weights. (4) Diastolic dysfunction: Code(s): I51.89 - Other ill-defined heart diseases Status: Acute Assessment and Plan: Echocardiogram last month showed abnormal diastolic function with normal EF of greater than 70%. He continues to have lower extremity edema and pulmonary edema as above. Moderate pulmonary hypertension was also noted on recent echo. (5) Aortic stenosis: Code(s): I35.0 - Nonrheumatic aortic (valve) stenosis Status: Acute Assessment and Plan: Moderate aortic stenosis noted on recent echocardiogram as detailed above. Continue judicious IV diuresis with close monitoring of volume status. (6) Hyponatremia: Code(s): E87.1 - Hypo-osmolality and hyponatremia Status: Acute Assessment and Plan: Sodium has drifted down over the past couple of weeks though has been stable over the last 5 days. May very well be due to excess fluid on board. Continue to monitor sodium while cautiously diuresing. Check FeUrea and urine and serum osmolalities.. (7) Elevated troponin: Code(s): R77.8 - Other specified abnormalities of plasma proteins Status: Acute Assessment and Plan: Troponin has been consistently elevated and is flat. Not indicative of acute coronary syndrome. (8) Chr
[2022-01-01 17:39] LABS: SARS-CoV-2 RNA PCR Negative
--- NOTE | 2022-01-01 20:13 | PC.NURSE ---
[facility] arrived at 1999 to transport patient to [facility], CVU Room 5. Patient was transported at 2024.
[2022-01-03 15:54] LABS: Osmolality, Urine 219 mOsm/kg (50-1200)
== END 2022-01-01 20:25 | disposition short-term general hospital (02) | DRG 306 ==
LOC: ANHED 13:17 → ANHIMU 13:30
PROVIDERS: Internal Medicine; Physician Assistant; Admitting Provider Chiropractor; Emergency Provider Emergency Medicine; PCP Family Medicine; Visit Provider Internal Medicine Cardiovascular Disease
DX: I38 Endocarditis, valve unspecified (principal); J96.01 Acute respiratory failure with hypoxia; R78.81 Bacteremia; E87.1 Hypo-osmolality and hyponatremia; J81.1 Chronic pulmonary edema; B95.2 Enterococcus as the cause of diseases classified elsewhere; I51.89 Other ill-defined heart diseases; Z20.822 Contact with and (suspected) exposure to COVID-19; I35.0 Nonrheumatic aortic (valve) stenosis; R77.8 Other specified abnormalities of plasma proteins; M19.90 Unspecified osteoarthritis, unspecified site; E78.2 Mixed hyperlipidemia; L40.9 Psoriasis, unspecified; E66.9 Obesity, unspecified; Z68.38 Body mass index [BMI] 38.0-38.9, adult; Z79.01 Long term (current) use of anticoagulants; Z86.718 Personal history of other venous thrombosis and embolism; Z86.711 Personal history of pulmonary embolism; Z86.16 Personal history of COVID-19
CPT/HCPCS: 36415; 36600; 71045; 71275; 80048; 80053; 81003; 82570; 82805; 83605; 83735; 83880; 83930; 83935; 84145; 84300; 84443; 84484; 84540; 85025; 85610; 85730; 86140; 87040; 87086; 87147; 87181; 87186; 93005; 93306; 93308; 94002; 94640; 96365; 96375; 99285; A9270; C9803; J0290; J0696; J1940; J3370; Q9967; U0003; U0005

== ENCOUNTER → 2022-05-10 16:06 | Outpatient (CLI) | payer OTHER, SELFPAY ==
--- NOTE | ~2022-05-10 | XR_ITS ---
EXAMINATION: XR toe 1st LT min 2V DATE: 05/10/2022 16:26 INDICATION: Gangrene, not elsewhere classified. TECHNIQUE: 2 views of left great toe were obtained. COMPARISON: None. FINDINGS: Bone alignment is normal. No fracture. There are erosions of tuft of first distal phalanx. Joint spaces are normal. IMPRESSION: 1. Erosions of tuft of first distal phalanx, consistent with osteomyelitis. Reviewed, dictated and finalized at location A. [facility]
== END ==
PROVIDERS: PCP Family Medicine; Visit Provider Physician Assistant Medical
DX: I96 Gangrene, not elsewhere classified (principal)
CPT/HCPCS: 73660

== ENCOUNTER 2023-03-03 14:05 | Inpatient (IN) | payer OTHER, SELFPAY ==
[2023-03-03] VITALS (24 sets, daily range): BP systolic 122–148; BP diastolic 65–86; PULSE 76–85; RESP 18–30; TEMP 37.6–38.5; O2SAT 92–99; BMI 34.7
--- NOTE | ~2023-03-03 | XR_ITS ---
EXAMINATION: XR toe 1st LT min 2V DATE: 03/03/2023 23:34 INDICATION: Left great toe wound. TECHNIQUE: 3 views of left great toe on 4 radiographs were obtained. COMPARISON: Left great toe radiographs 05/10/22 FINDINGS: Bone alignment is normal. No fracture. There are erosions of tuft of first distal phalanx. There is an erosion of head of first proximal phalanx. IMPRESSION: 1. Erosions of first distal and proximal phalanges, worsened from 05/10/22, consistent with osteomyeli tis. Reviewed, dictated and finalized at location E. STRIAL ECONOMIST IMPRESSION: 1. Erosions of first distal and proximal phalanges, worsened from 05/10/22, cons istent with osteomyelitis.
--- NOTE | ~2023-03-03 | US_ITS ---
EXAMINATION: US venous doppler [facility] DATE: 03/03/2023 15:13 INDICATION: Left lower limb pain and swelling. TECHNIQUE: Grayscale ultrasound images without and with compression and Doppler ultrasound images of the left lower extremity veins were obtained. COMPARISON: Ultrasound 12/16/2021 FINDINGS: The visualized portions of left common femoral vein, profunda (deep) femoral vein, and greater saphen ous vein outflow are patent. There is thrombus in left femoral vein and popliteal vein. IMPRESSION: 1. Deep vein thrombosis involving left femoral vein and popliteal vein, worsened from 12/16/21. I miriam led this result to Dr. Fuentes. Reviewed, dictated and finalized at location E. TESTER IMPRESSION: 1. Deep vein thrombosis involving left femoral vein and popliteal vein, worsen ed from 12/16/21. I called this result to Dr. Fuentes.
--- NOTE | 2023-03-03 14:37 | ED.EXTPRO ---
HPI - Extremity Problem General Chief complaint: Extremity Problem,Nontraumatic Stated complaint: r/o dvt Time Seen by Provider: 03/03/23 14:25 History of Present Illness HPI Narrative: Pt p/w LLE pain started yesterday, quite swollen/painful. Also having chills. H/o DVT not on anticoag does have IVC filter. Related Data Home Medications Medication Instructions Recorded Confirmed loratadine 10 mg capsule 10 mg PO DAILY 11/21/19 11/09/22 acetaminophen 650 mg 650 mg PO Q12H PRN Pain 12/16/21 11/09/22 tablet,extended release furosemide 40 mg tablet 40 mg PO BID 05/09/22 11/09/22 nifedipine 30 mg tablet,extended 30 mg PO DAILY 05/09/22 11/09/22 release fluticasone propionate 50 1 spray intranasal DAILY 06/06/22 11/09/22 mcg/actuation nasal spray,suspension (Flonase Allergy Relief) Allergies Allergy/AdvReac Type Severity Reaction Status Date / Time No Known Allergies Allergy Verified 11/09/22 14:12 Review of Systems Review of Systems: CONST: fever. HEENT: No sore throat C/V: No chest pain RESP: No cough GI: No abd pain : No dysuria. M/S: LLE pain SKIN: Redness/warm to LLE. NEURO: [No headache or focal numbness or weakness] PSYCH: [No depression] [facility] Past Medical History Medical History (Updated 03/03/23 @ 17:57 by Pili Fuentes MD) Aortic stenosis Moderate with peak velocity 247 mean gradient of 8 and valve area of 1.2 cm. Arthritis Chronic anticoagulation Chronic deep vein thrombosis (09/2018) Left popliteal vein. Chronic renal insufficiency, stage III (moderate) Congestive heart failure Echo 12/16/2021: Mild left ventricular enlargement, EF greater than 70%, abnormal left ventricular diastolic function, severe left atrial enlargement, mild mitral valve regurgitation, moderate pulmonary hypertension RVSP 48, moderate aortic valve stenosis. Endocarditis Enterococcal bacteremia H/O valvular heart disease History of COVID-19 Hypertension Mixed hyperlipidemia TAMMY (obstructive sleep apnea) Osteomyelitis of great toe of left foot Psoriasis Pulmonary embolism (~09/2018) With CTA November 2021 demonstrating chronic right lower lobe pulmonary embolism Pulmonary hypertension RVSP of 48 on echo in November 2021. Family History Family History Mother Liver cancer Father Alcoholism Social History Social History (Updated 11/09/22 @ 14:15 by Marta Brito [facility]) Social History: Surrogate medical decision maker: Lyndsey Bolden, . Code status: Full code. Smoking status: Never smoker Second hand tobacco smoke exposure: No Alcohol intake: never Substance use: never Substance use type: does not use Lack of Transportation: No Lack of Food: Never True Current Housing: I Have Housing Concerned About Future Housing: No Difficulty Paying Gas/Electric Bills: No Difficulty Paying for Meds: No Currently Unemployed: Decline to Answer Education: Bachelor's Degree Difficulty w/ Childcare or Family Care: No Living arrangements: with family Additional living arrangements comments: Lives with in [place]. They have adult twin daughters. 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 Gender identity (if verbalized by the patient): Male Spiritual care concerns: No Agree to blood products: Yes Exam Narrative: EXAMINATION OF ORGAN SYSTEMS/BODY AREAS: Constitutional: Vital signs per nursing GENERAL:[No acute distress, non-toxic appearing.] HEAD: Normal with no signs of head trauma. EYES: EOMI, conjunctiva normal ENT: Hearing grossly intact LUNGS: Nonlabored breathing. HEART: [Regular rate and rhythm] ABD: [Soft], [nontender to palpation] EXT: Severe swelling LLE compared to R; normal DP pulse. Erythema/warmth to LLE. Big toe with chronic-appearing ulcer but no redness SKIN: see above NEURO: [Alert and oriented
[2023-03-03 15:30] LABS: Basophils Percent Auto 0.1 % (0.2-1.2); Eosinophils Percent Auto 0.1 % (0-4.4); Immature Granulocyte Absolute 0.16 K/mm3 (0.00-0.031); Immature Granulocyte Percent A 0.8 % (0-0.5); Lymphocytes Absolute Auto 0.97 K/mm3 (0.9-3.2); Lymphocytes Percent Auto 4.6 % (18.3-44.2); Mean Corpuscular HGB Conc 32.5 g/dl (32-36); Mean Corpuscular Hemoglobin 29.9 pg (26-34); Mean Platelet Volume 8.8 fl (7.4-10.4); Monocytes Absolute Auto 1.1 K/mm3 (0.1-0.6); Neutrophils Absolute Auto 18.8 K/mm3 (1.3-6.7); Neutrophils Percent Auto 89.4 % (45.5-73.1); Platelet Count Result 237 k/mm3 (150-375); Red Blood Count 4.35 M/mm3 (4.6-6.20); Red Cell Distribution Width 15.6 % (11.5-14.5); White Blood Count 21.1 K/mm3 (4.5-10.0)
[2023-03-03 15:39] LABS: Anion Gap 12 mmol/L (8-16); Blood Urea Nitrogen 24 mg/dL (9-20); Calcium 9.5 mg/dL (8.4-10.2); Carbon Dioxide 24 mmol/L (22-30); Chloride 99 mmol/L (98-107); Estimated Glomerular Filt Rate 40; Glucose 105 mg/dL (65-110); Potassium 3.5 mmol/L (3.4-5.0); Sodium 135 mmol/L (137-145)
[2023-03-03 15:41] LABS: INR 1.1; Prothrombin Time 14.3 Seconds (11.1-14.7)
[2023-03-03 15:42] LABS: Partial Thromboplastin Time 40.1 SECONDS (22.3-36.8)
--- NOTE | 2023-03-03 17:24 | PM.IMHP ---
H&P: HPI History of Present Illness Date/Time: 03/03/23 16:45 Chief Complaint: Left leg pain and swelling. 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 Monday evening anteriorly morning he developed a fever and the following day he noticed pain, redness, and swelling of the left lower leg. He has been taking acetaminophen for his discomfort and his fever has not returned. He continues to have a burning and occasional stabbing pain in the left leg with increasing redness and swelling over the past couple of days. He was worried about an infection in the leg and came in for evaluation. Of note he has dry gangrene of the left 1st toe with history of osteomyelitis for which he is being closely followed. He has not noticed any change in that toe and he does not have similar symptoms in that toe. He had cold symptoms couple of weeks ago however that has since resolved. His appetite has been okay and he denies nausea, vomiting, diarrhea, and dysuria. He also denies chest pain, pleuritic pain, shortness a breath, paresthesias, and temperature changes of the left leg. He had a low-grade temperature on arrival to the ED. Labs were significant for a WBC count of 21.1, hemoglobin 13.0, creatinine 1.70. Left lower extremity venous Doppler ultrasound was positive for DVT in the left femoral vein and popliteal vein, worsened from 12/16/2021. He received 1250 mg vancomycin for presumed left leg cellulitis and he has been started on rivaroxaban 15 mg b.i.d. for the DVT as he has been on this drug before and is familiar with it. He is being admitted in this setting for further treatment. Review of Systems Review of Systems: Twelve systems were reviewed and are negative except for as per HPI. [facility] Past Medical History Medical History (Updated 03/03/23 @ 23:07 by Jacqueline Michele PA-C) Aortic stenosis Status post bioprosthetic aortic valve replacement. Arthritis Chronic anticoagulation Chronic deep vein thrombosis (09/2018) Left popliteal vein. Chronic renal insufficiency, stage III (moderate) Congestive heart failure Echo 12/16/2021: Mild left ventricular enlargement, EF greater than 70%, abnormal left ventricular diastolic function, severe left atrial enlargement, mild mitral valve regurgitation, moderate pulmonary hypertension RVSP 48, moderate aortic valve stenosis. Endocarditis Enterococcal bacteremia History of COVID-19 Hypertension Mixed hyperlipidemia Obstructive sleep apnea on CPAP Osteomyelitis of great toe of left foot Psoriasis Pulmonary embolism (~09/2018) With CTA November 2021 demonstrating chronic right lower lobe pulmonary embolism Pulmonary hypertension RVSP of 48 on echo in November 2021. Surgical History Surgical History (Updated 03/03/23 @ 23:02 by Jacqueline Michele PA-C) History of aortic valve replacement with bioprosthetic valve History of inferior vena caval filter placement History of mitral valve replacement with bioprosthetic valve History of tracheostomy Family History Family History Mother Liver cancer Father Alcoholism Social History Social History (Updated 03/03/23 @ 23:03 by Jacqueline Michele PA-C) Social History: Surrogate medical
[2023-03-03] MEDS: VANCOMYCIN 1,250 MG/NS 250 ML 1,250 MG/250 ML BAG 166.67 MG IVPB ×2 (17:27→19:01)
[2023-03-03] MEDS: RIVAROXABAN 15 MG TABLET PO (18:30)
--- NOTE | 2023-03-03 20:47 | PC.NURSE ---
Attempted report. RN unavailable and will call back.
--- NOTE | 2023-03-03 20:50 | PC.NURSE ---
called Ed back for report on pt
--- NOTE | 2023-03-03 22:13 | PC.NURSE ---
This patient, Yuan Weiner Jr., was admitted to [facility] Surg Room 314-02. Patient/family oriented to hospital policies and general routines including ID bracelet, bed and alarms, visiting hours, pain management, procedures, bathroom and other care routines, personal items, smoking policy, room service/diet, and visiting hours. Information on how to activate the Rapid Response Team has been discussed. Patient/Family are encouraged to report perceived risks to care and to ask questions if they do not understand what they are told or what they should do.
[2023-03-03] MEDS: LACTATED RINGERS 1,000 ML 100 ML IV CONT (23:23)
[2023-03-03] MEDS: ACETAMINOPHEN 325 MG TABLET 650 MG PO (23:33)
[2023-03-04] VITALS (7 sets, daily range): BP systolic 122–131; BP diastolic 59–67; PULSE 68–74; RESP 18–20; TEMP 36.9–38.1; O2SAT 96–99
[2023-03-04] MEDS: ceFAZolin 1 GM/NS 50 ML 1 GM/50 ML BAG IVPB ×2 (00:39→12:59)
[2023-03-04] MEDS: ACETAMINOPHEN 325 MG TABLET 650 MG PO ×3 (05:46→21:21)
[2023-03-04 06:32] LABS: Hematocrit 33.1 % (42.0-52.0); Hemoglobin 10.9 g/dL (14.0-18.0); Mean Corpuscular HGB Conc 32.9 g/dl (32-36); Mean Corpuscular Hemoglobin 30.2 pg (26-34); Mean Corpuscular Volume 91.7 fl (80-100); Platelet Count Result 193 k/mm3 (150-375); Red Blood Count 3.61 M/mm3 (4.6-6.20); Red Cell Distribution Width 15.5 % (11.5-14.5); White Blood Count 13.4 K/mm3 (4.5-10.0)
[2023-03-04 06:47] LABS: Alanine Aminotransferase 36 U/L (6-50); Albumin Level 3.5 g/dL (3.5-5.1); Alkaline Phosphatase 111 U/L (38-126); Anion Gap 10 mmol/L (8-16); Aspartate Amino Transferase 34 U/L (17-59); Bilirubin,Total 0.8 mg/dL (0.2-1.3); Blood Urea Nitrogen 20 mg/dL (9-20); Calcium 8.6 mg/dL (8.4-10.2); Carbon Dioxide 21 mmol/L (22-30); Chloride 103 mmol/L (98-107); Creatine Kinase 42 U/L (55-170); Estimated CRCL calculation 53 ml/min; Estimated Glomerular Filt Rate 46; Glucose 102 mg/dL (65-110); Magnesium 1.8 mg/dL (1.6-2.3); Potassium 3.3 mmol/L (3.4-5.0); Sodium 134 mmol/L (137-145)
[2023-03-04] MEDS: ATORVASTATIN 20 MG TABLET 60 MG PO (09:34)
[2023-03-04] MEDS: FLUTICASONE PROPIONATE 0.05% NA SPR 16 GM BTL (*BKC) 1 SPRAY NASAL (09:35)
[2023-03-04] MEDS: RIVAROXABAN 15 MG TABLET PO ×2 (09:35→16:48)
[2023-03-04] MEDS: POTASSIUM CHLORIDE 20 MEQ ER TABLET 40 MEQ PO (09:35)
[2023-03-04] MEDS: LORATADINE 10 MG TABLET PO (09:35)
[2023-03-04] MEDS: MAGNESIUM SULF 2 GM/WATER 50ML 2 GM/50 ML BAG IVPB (09:35)
[2023-03-04] MEDS: NIFEdipine 30 MG TAB.ER.24 PO (09:35)
[2023-03-04] MEDS: MULTIVITAMINS /C LUTEIN (CENTRUM SILVER) TABLET *BKC 1 TAB PO (09:35)
[2023-03-04] MEDS: AZELASTINE HCL NASAL 0.1% 137 MCG/SPR 30 ML BTL 1 SPRAY NASAL ×2 (09:36→20:47)
[2023-03-04] MEDS: PSYLLIUM POWDER PACKET 1 PACKET PO (13:43)
--- NOTE | 2023-03-04 15:08 | PM.IMPN ---
Progress Note: A&P Assessment and Plan (1) Left leg cellulitis: Code(s): L03.116 - Cellulitis of left lower limb Status: Acute Assessment and Plan: Patient with left lower extremity erythema with associated leukocytosis and fever with cellulitis as source. Cultures obtained. Was started on vancomycin and Ancef. White count trending downward. Fever curve is improving. Continue to follow clinically. Follow WBC (2) Left leg DVT: Code(s): I82.402 - Acute embolism and thrombosis of unspecified deep veins of left lower extremity Status: Acute Assessment and Plan: Doppler showing thrombosis of the left femoral vein and popliteal vein. Doppler in November 2021 showing chronic DVT of the left popliteal vein. The left femoral vein appears to be new. He does have a IVC filter in place. He was started on Xarelto. Monitor closely given his hx of GI bleed. (3) Toe necrosis: Code(s): I96 - Gangrene, not elsewhere classified Status: Acute Assessment and Plan: Patient has chronic necrosis to the tip of the left great toe. Appears to be a dry gangrene. He does not want amputation. Toe xray in April 2022 showing erosions of the tuft of first distal phalanx. Toe xray here showing erosions of the 1st distal and proximal phalanges worsening from April. Unclear if this is osteomyelitis or if this is bony erosions from necrosis and re-absorption. If osteomyelitis, this might be the source of the cellulitis. Also, this would not improve without IV abx. Given that it is dry and without surrounding erythema, suspect this is more chronic progressive necrosis. Consider MRI (4) Chronic renal insufficiency, stage III (moderate): Code(s): N18.30 - Chronic kidney disease, stage 3 unspecified Status: Acute Assessment and Plan: Cr 1.7 on admission. Cr earlier this year was 1.35. Patient started on IV fluids. He has a hx of BERNARDA requiring HD in Dec 2021. Cr trending down close to baseline. Lasix remains on hold Follow (5) Obstructive sleep apnea on CPAP: Code(s): G47.33 - Obstructive sleep apnea (adult) (pediatric) Status: Acute Assessment and Plan: Will order auto BiPAP while patient hospitalized (6) Hypertension: Code(s): I10 - Essential (primary) hypertension Status: Chronic Assessment and Plan: Patient's blood pressure was reviewed on 03/04 Blood pressure remains well controlled. Will continue to monitor (7) Congestive heart failure: Code(s): I50.9 - Heart failure, unspecified Status: Acute Assessment and Plan: Echo in Dec 2021 showing EF 70% and possible aortic valve echodensity who ultimately sent to [facility] for endocarditis. he underwent AV and MV bioprosthetic valve replacement 01/04/22. Monitor fluid status closely IV fluids completed. Further evaluation if he has positive BCx. (8) Aortic stenosis: Code(s): I35.0 - Nonrheumatic aortic (valve) stenosis Status: Acute Assessment and Plan: Status post bioprosthetic aortic valve replacement. As above. Subjective Date/time seen: 03/04/23 15:08 Interval history: 67yo male with DM, VTE s/p IVC filter, HTN, TAMMY and CHF here for left leg pain and swelling. Patient feels better. No CP or SOB. 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 No longer on anticoagulation due to hx of GI bleed. He did have a PICC line and terminal press operator IV abx for treatment of the left toe. He is trying not to have amputation but just to allow the tip to necrose. Exam Narrative: Tm 101.3 98.5 122/62 68 20 99% ra Gen - NARD Chest - CTA bilaterally, nml RR CV - RRR S1/S2 with 3/6 systolic murmur loudest USB Abd - Soft, NT/ND, Positive BS Ext - bilateral L>>R pitting edema. Left great toe tip was necrotic, dry. no drainage. Neuro - Alert and oriented. Nonfocal exam. Psych - Nml mood and affect Skin - greyish-red erythema left eduardo from just below the left knee t
[2023-03-04] MEDS: MONTELUKAST SODIUM 10 MG TABLET PO (20:46)
[2023-03-05] MEDS: ceFAZolin 1 GM/NS 50 ML 1 GM/50 ML BAG IVPB ×2 (00:52→11:48)
[2023-03-05 06:00] VITALS: BP 126/64; PULSE 66; RESP 16; TEMP 36.9; O2SAT 93
[2023-03-05 06:49] LABS: Basophils Percent Auto 0.2 % (0.2-1.2); Eosinophils Absolute Auto 0.3 K/mm3 (0-0.3); Eosinophils Percent Auto 2.6 % (0-4.4); Hematocrit 32.1 % (42.0-52.0); Hemoglobin 10.5 g/dL (14.0-18.0); Immature Granulocyte Absolute 0.08 K/mm3 (0.00-0.031); Immature Granulocyte Percent A 0.7 % (0-0.5); Lymphocytes Absolute Auto 1.13 K/mm3 (0.9-3.2); Lymphocytes Percent Auto 9.7 % (18.3-44.2); Mean Corpuscular HGB Conc 32.7 g/dl (32-36); Mean Corpuscular Hemoglobin 29.7 pg (26-34); Mean Corpuscular Volume 90.7 fl (80-100); Mean Platelet Volume 8.9 fl (7.4-10.4); Monocytes Absolute Auto 1.1 K/mm3 (0.1-0.6); Monocytes Percent Auto 9.6 % (2.6-8.5); Neutrophils Percent Auto 77.2 % (45.5-73.1); Platelet Count Result 201 k/mm3 (150-375); Red Blood Count 3.54 M/mm3 (4.6-6.20); Red Cell Distribution Width 15.4 % (11.5-14.5); White Blood Count 11.6 K/mm3 (4.5-10.0)
[2023-03-05 06:55] LABS: Albumin Level 3.4 g/dL (3.5-5.1); Anion Gap 7 mmol/L (8-16); Blood Urea Nitrogen 19 mg/dL (9-20); Calcium 8.8 mg/dL (8.4-10.2); Carbon Dioxide 23 mmol/L (22-30); Chloride 105 mmol/L (98-107); Estimated CRCL calculation 57 ml/min; Estimated Glomerular Filt Rate 50; Glucose 101 mg/dL (65-110); Magnesium 2.3 mg/dL (1.6-2.3); Phosphorus 2.8 mg/dL (2.5-4.5); Potassium 3.9 mmol/L (3.4-5.0); Sodium 135 mmol/L (137-145)
[2023-03-05] MEDS: RIVAROXABAN 15 MG TABLET PO ×2 (09:20→17:38)
[2023-03-05] MEDS: LORATADINE 10 MG TABLET PO (09:20)
[2023-03-05] MEDS: MULTIVITAMINS /C LUTEIN (CENTRUM SILVER) TABLET *BKC 1 TAB PO (09:20)
[2023-03-05] MEDS: NIFEdipine 30 MG TAB.ER.24 PO (09:20)
[2023-03-05] MEDS: ATORVASTATIN 20 MG TABLET 60 MG PO (09:20)
[2023-03-05] MEDS: PSYLLIUM POWDER PACKET 1 PACKET PO (09:20)
[2023-03-05] MEDS: AZELASTINE HCL NASAL 0.1% 137 MCG/SPR 30 ML BTL 1 SPRAY NASAL ×2 (09:21→21:10)
[2023-03-05] MEDS: FLUTICASONE PROPIONATE 0.05% NA SPR 16 GM BTL (*BKC) 1 SPRAY NASAL (09:21)
--- NOTE | 2023-03-05 10:53 | PM.IMPN ---
Progress Note: A&P Assessment and Plan (1) Left leg cellulitis: Code(s): L03.116 - Cellulitis of left lower limb Status: Acute Assessment and Plan: Patient with left lower extremity erythema with associated leukocytosis and fever with cellulitis as source. Cultures obtained. He was started on vancomycin and Ancef. White count trending downward. Fever curve is improving. BCx NGTD. Continue to follow clinically. Follow WBC (2) Left leg DVT: Code(s): I82.402 - Acute embolism and thrombosis of unspecified deep veins of left lower extremity Status: Acute Assessment and Plan: Doppler showing thrombosis of the left femoral vein and popliteal vein. Doppler in November 2021 showing chronic DVT of the left popliteal vein. The left femoral vein appears to be new. He does have a IVC filter in place. Hgb 13 ->10.9->10.5 He was started on Xarelto. Monitor closely given his hx of GI bleed. (3) Toe necrosis: Code(s): I96 - Gangrene, not elsewhere classified Status: Acute Assessment and Plan: Patient has chronic necrosis to the tip of the left great toe. Appears to be a dry gangrene. He does not want amputation. Toe xray in April 2022 showing erosions of the tuft of first distal phalanx. Toe xray here showing erosions of the 1st distal and proximal phalanges worsening from April. Unclear if this is osteomyelitis or if this is bony erosions from necrosis and re-absorption. If osteomyelitis, this might be the source of the cellulitis. Also, this would not improve without IV abx. Given that it is dry and without surrounding erythema, suspect this is more chronic progressive necrosis. Consider MRI Will talk with his doctor tomorrow Dr Chung Monzon ([phone]) (4) Chronic renal insufficiency, stage III (moderate): Code(s): N18.30 - Chronic kidney disease, stage 3 unspecified Status: Acute Assessment and Plan: Cr 1.7 on admission. Cr earlier this year was 1.35. Patient started on IV fluids. He has a hx of BERNARDA requiring HD in Dec 2021. Cr trending down. He is off IV fluids. Cr today at 1.4 Lasix remains on hold so will resume today and monitor Follow (5) Obstructive sleep apnea on CPAP: Code(s): G47.33 - Obstructive sleep apnea (adult) (pediatric) Status: Acute Assessment and Plan: Auto BiPAP ordered while patient hospitalized (6) Hypertension: Code(s): I10 - Essential (primary) hypertension Status: Chronic Assessment and Plan: Patient's blood pressure was reviewed on 03/05 Blood pressure remains well controlled. Will continue to monitor (7) Congestive heart failure: Code(s): I50.9 - Heart failure, unspecified Status: Acute Assessment and Plan: Echo in Dec 2021 showing EF 70% and possible aortic valve echodensity who ultimately sent to [facility] for endocarditis. He underwent AV and MV bioprosthetic valve replacement 01/04/22. IV fluids completed. Cr back to baseline. Further cardiac evaluation if he has positive BCx. Resume Lasix Monitor fluid status closely (8) Aortic stenosis: Code(s): I35.0 - Nonrheumatic aortic (valve) stenosis Status: Acute Assessment and Plan: Status post bioprosthetic aortic valve replacement. As above. Subjective Date/time seen: 03/05/23 10:53 Interval history: 67yo male with DM, VTE s/p IVC filter, HTN, TAMMY and CHF here for left leg pain and swelling. Patient feels well today. No nausea or vomiting. No diarrhea. Slept well. Has decreased pain and tightness in the left leg. He has not been up walking much. Exam Narrative: AF 98.5 126/64 66 16 93% ra Gen - NARD Chest - CTA bilaterally, nml RR CV - RRR S1/S2 with 3/6 systolic murmur loudest USB and apex Abd - Soft, NT/ND, Positive BS Ext - bilateral L>>R pitting edema. Psych - Nml mood and affect Skin - brick red erythema left eduardo from just below the l
[2023-03-05 11:48] VITALS: O2SAT 95
[2023-03-05 14:00] VITALS: BP 133/63; PULSE 62; RESP 18; TEMP 37.2; O2SAT 96
--- NOTE | 2023-03-05 17:30 | PCRCNOTE ---
Pt. states he has never worn a CPAP or BIPAP at home.
[2023-03-05] MEDS: ACETAMINOPHEN 325 MG TABLET 650 MG PO (17:37)
[2023-03-05] MEDS: FUROSEMIDE 40 MG TABLET PO (17:38)
[2023-03-05 17:49] LABS: Vancomycin Trough 10.1 ug/mL (10.0-20.0)
[2023-03-05] MEDS: MONTELUKAST SODIUM 10 MG TABLET PO (21:10)
[2023-03-05 22:00] VITALS: BP 138/73; PULSE 71; RESP 26; TEMP 36.6; O2SAT 93
[2023-03-06] MEDS: ceFAZolin 1 GM/NS 50 ML 1 GM/50 ML BAG IVPB ×2 (00:13→12:56)
[2023-03-06 06:00] VITALS: BP 127/66; PULSE 70; RESP 22; TEMP 36.8; O2SAT 93
[2023-03-06 06:26] LABS: Basophils Percent Auto 0.2 % (0.2-1.2); Eosinophils Absolute Auto 0.4 K/mm3 (0-0.3); Hematocrit 35.5 % (42.0-52.0); Hemoglobin 11.8 g/dL (14.0-18.0); Immature Granulocyte Absolute 0.13 K/mm3 (0.00-0.031); Immature Granulocyte Percent A 1.2 % (0-0.5); Lymphocytes Percent Auto 11.9 % (18.3-44.2); Mean Corpuscular HGB Conc 33.2 g/dl (32-36); Mean Corpuscular Hemoglobin 29.9 pg (26-34); Mean Corpuscular Volume 89.9 fl (80-100); Mean Platelet Volume 8.7 fl (7.4-10.4); Monocytes Absolute Auto 0.9 K/mm3 (0.1-0.6); Monocytes Percent Auto 8.6 % (2.6-8.5); Neutrophils Absolute Auto 8.1 K/mm3 (1.3-6.7); Neutrophils Percent Auto 74.1 % (45.5-73.1); Platelet Count Result 227 k/mm3 (150-375); Red Blood Count 3.95 M/mm3 (4.6-6.20); Red Cell Distribution Width 15.2 % (11.5-14.5)
[2023-03-06 06:39] LABS: Anion Gap 9 mmol/L (8-16); Blood Urea Nitrogen 18 mg/dL (9-20); Calcium 9.3 mg/dL (8.4-10.2); Carbon Dioxide 25 mmol/L (22-30); Chloride 103 mmol/L (98-107); Estimated CRCL calculation 57 ml/min; Estimated Glomerular Filt Rate 50; Glucose 116 mg/dL (65-110); Potassium 3.6 mmol/L (3.4-5.0); Sodium 137 mmol/L (137-145)
[2023-03-06] MEDS: PSYLLIUM POWDER PACKET 1 PACKET PO (08:19)
[2023-03-06] MEDS: ATORVASTATIN 20 MG TABLET 60 MG PO (08:20)
[2023-03-06] MEDS: MULTIVITAMINS /C LUTEIN (CENTRUM SILVER) TABLET *BKC 1 TAB PO (08:20)
[2023-03-06] MEDS: FUROSEMIDE 40 MG TABLET PO (08:20)
[2023-03-06] MEDS: RIVAROXABAN 15 MG TABLET PO (08:20)
[2023-03-06] MEDS: LORATADINE 10 MG TABLET PO (08:20)
[2023-03-06] MEDS: NIFEdipine 30 MG TAB.ER.24 PO (08:20)
[2023-03-06] MEDS: AZELASTINE HCL NASAL 0.1% 137 MCG/SPR 30 ML BTL 1 SPRAY NASAL (08:21)
[2023-03-06] MEDS: FLUTICASONE PROPIONATE 0.05% NA SPR 16 GM BTL (*BKC) 1 SPRAY NASAL (08:21)
[2023-03-06 14:00] VITALS: BP 130/69; PULSE 58; RESP 16; TEMP 36.8; O2SAT 97
--- NOTE | 2023-03-06 14:52 | PM.DS ---
DS: Admitting Diagnosis Discharge Date 03/06/23 Admitting Diagnosis Left leg pain and swelling DS: Discharge Diagnosis Discharge Diagnosis (1) Left leg cellulitis: Code(s): L03.116 - Cellulitis of left lower limb Status: Acute (2) Left leg DVT: Code(s): I82.402 - Acute embolism and thrombosis of unspecified deep veins of left lower extremity Status: Acute (3) Toe necrosis: Code(s): I96 - Gangrene, not elsewhere classified Status: Acute (4) Chronic renal insufficiency, stage III (moderate): Code(s): N18.30 - Chronic kidney disease, stage 3 unspecified Status: Acute (5) Obstructive sleep apnea on CPAP: Code(s): G47.33 - Obstructive sleep apnea (adult) (pediatric) Status: Acute (6) Hypertension: Code(s): I10 - Essential (primary) hypertension Status: Chronic (7) Congestive heart failure: Code(s): I50.9 - Heart failure, unspecified Status: Acute (8) Aortic stenosis: Code(s): I35.0 - Nonrheumatic aortic (valve) stenosis Status: Acute DS: Summary Hospital Course Reason for hospitalization: 67yo male with DM, VTE s/p IVC filter, HTN, TAMMY and CHF here for left leg pain and swelling. Please see H&P for details. Hospital Course: Patient presents with left leg pain, edema and redness with associated leukocytosis and fever felt to have LLE cellulitis. BCx NGTD. He was started on vancomycin and Ancef.?WBC 21K and trended down. Fever curve improved and became afebrile. Doppler showing thrombosis of the left femoral vein and popliteal vein. Doppler in November 2021 showing chronic DVT of the left popliteal vein. The left femoral vein appears to be new so he wa started on Xarelto. Hgb 13 but dropped to 10-11 range and remained stable. Patient has chronic necrosis to the tip of the left great toe. He does not want amputation. Toe xray in April 2022 showing erosions of the tuft of first distal phalanx. Toe xray here showing erosions of the 1st distal and proximal phalanges worsening from April. Unclear if this is osteomyelitis or if this is bony erosions from necrosis and re-absorption. Wound care consulted. The dark eschar was removed showing pink health tissue. Given that it is dry and without surrounding erythema, suspect this is more chronic progressive necrosis. Spoke with his doctor who did not feel the patient need IV abx and recommended patietn to return to the wound care clinic if he has concerns (Dr Chung Monzon [phone]). Patient has chronic renal insufficiency. Cr 1.7 on admission. Cr earlier this year was 1.35. Patient started on IV fluids. He has a hx of BERNARDA requiring HD in Dec 2021. Cr trended down to 1.4. He had clinical improvement. He was able to be discharged home on 03/06/23. Status at Discharge Cognitive/behavioral status at discharge: stable Time Spent with Patient Time attestation: Total time spent providing and/or coordinating discharge services: 38 minutes Time spent: Greater than 30 minutes Exam Narrative: AF 98.2 130/69 58 16 97% ra Gen - NARD Chest - CTA bilaterally, nml RR CV - RRR S1/S2 with 2/6 systolic murmur loudest USB and apex Abd - Soft, NT/ND, Positive BS Ext - decreased left LE edema Psych - Nml mood and affect Skin - dark red erythema left eduardo from just below the left knee to the ankle. DS: Data Data Completed and Pending Labs on day of discharge: Labs from last 24 hours 03/06/23 03/05/23 06:09 17:01 WBC 11.0 H RBC 3.95 L Hgb 11.8 L Hct 35.5 L MCV 89.9 MCH 29.9 MCHC 33.2 RDW 15.2 H Plt Count 227 MPV 8.7 Immature Gran % (Auto) 1.2 H Neut % (Auto) 74.1 H Lymph % (Auto) 11.9 L Upson % (Auto) 8.6 H Eos % (Auto) 4.0 Baso % (Auto) 0.2 Lymph # (Auto) 1.30 Upson # (Auto) 0.9 H Eos # (Auto) 0.4 H Baso # (Auto) 0.0 Abs Immat Gran (auto) 0.13 H Absolute Neuts (auto) 8.1 H Absolute Nucleated RBC 0.0 Nucleat
== END 2023-03-06 17:20 | disposition home or self-care (01) | DRG 300 ==
LOC: ANHED 17:57 → ANH3MEDSUR 18:35
PROVIDERS: Physician Assistant; Admitting Provider Internal Medicine; Emergency Provider Emergency Medicine; PCP Family Medicine; Visit Provider Internal Medicine
DX: I82.412 Acute embolism and thrombosis of left femoral vein (principal); I13.0 Hypertensive heart and chronic kidney disease with heart failure and stage 1 through stage 4 chronic kidney disease, or unspecified chronic kidney disease; L03.116 Cellulitis of left lower limb; I96 Gangrene, not elsewhere classified; I82.432 Acute embolism and thrombosis of left popliteal vein; I27.20 Pulmonary hypertension, unspecified; I50.9 Heart failure, unspecified; N18.30 Chronic kidney disease, stage 3 unspecified; E78.2 Mixed hyperlipidemia; M19.90 Unspecified osteoarthritis, unspecified site; G47.33 Obstructive sleep apnea (adult) (pediatric); L40.9 Psoriasis, unspecified; Z86.718 Personal history of other venous thrombosis and embolism; Z86.711 Personal history of pulmonary embolism; Z95.4 Presence of other heart-valve replacement
CPT/HCPCS: 36415; 73660; 80048; 80053; 80069; 80202; 82550; 83735; 85025; 85027; 85610; 85730; 87040; 93971; 99285; A9270; J0690; J3370; J3475; J7120

== ENCOUNTER 2023-03-28 10:12 | Outpatient (CLI) | payer OTHER, SELFPAY ==
[2023-03-28 16:49] LABS: Basophils Percent Auto 0.3 % (0.2-1.2); Eosinophils Absolute Auto 0.5 K/mm3 (0-0.3); Eosinophils Percent Auto 7.5 % (0-4.4); Hematocrit 34.6 % (42.0-52.0); Hemoglobin 11.1 g/dL (14.0-18.0); Immature Granulocyte Absolute 0.02 K/mm3 (0.00-0.031); Immature Granulocyte Percent A 0.3 % (0-0.5); Lymphocytes Absolute Auto 2.15 K/mm3 (0.9-3.2); Lymphocytes Percent Auto 35.1 % (18.3-44.2); Mean Corpuscular HGB Conc 32.1 g/dl (32-36); Mean Corpuscular Hemoglobin 30.1 pg (26-34); Mean Corpuscular Volume 93.8 fl (80-100); Mean Platelet Volume 8.9 fl (7.4-10.4); Monocytes Absolute Auto 0.6 K/mm3 (0.1-0.6); Monocytes Percent Auto 10.3 % (2.6-8.5); Neutrophils Absolute Auto 2.8 K/mm3 (1.3-6.7); Neutrophils Percent Auto 46.5 % (45.5-73.1); Platelet Count Result 204 k/mm3 (150-375); Red Blood Count 3.69 M/mm3 (4.6-6.20); Red Cell Distribution Width 16.2 % (11.5-14.5); White Blood Count 6.1 K/mm3 (4.5-10.0)
[2023-03-28 17:00] LABS: Alanine Aminotransferase 28 U/L (6-50); Alkaline Phosphatase 154 U/L (38-126); Anion Gap 8 mmol/L (8-16); Aspartate Amino Transferase 33 U/L (17-59); Bilirubin,Total 0.5 mg/dL (0.2-1.3); Blood Urea Nitrogen 16 mg/dL (9-20); Calcium 9.3 mg/dL (8.4-10.2); Carbon Dioxide 26 mmol/L (22-30); Chloride 103 mmol/L (98-107); Estimated Glomerular Filt Rate 50; Glucose 75 mg/dL (65-110); Potassium 3.7 mmol/L (3.4-5.0); Sodium 137 mmol/L (137-145)
[2023-03-28 17:01] LABS: Alanine Aminotransferase 28 U/L (6-50); Albumin Level 4.1 g/dL (3.5-5.1); Alkaline Phosphatase 156 U/L (38-126); Anion Gap 9 mmol/L (8-16); Aspartate Amino Transferase 32 U/L (17-59); Bilirubin,Total 0.5 mg/dL (0.2-1.3); Blood Urea Nitrogen 16 mg/dL (9-20); Calcium 9.3 mg/dL (8.4-10.2); Carbon Dioxide 27 mmol/L (22-30); Chloride 103 mmol/L (98-107); Estimated Glomerular Filt Rate 50; Glucose 75 mg/dL (65-110); Potassium 3.7 mmol/L (3.4-5.0); Sodium 139 mmol/L (137-145)
== END 2023-03-28 10:13 | disposition home or self-care (01) ==
PROVIDERS: PCP Family Medicine; Visit Provider Family Medicine
DX: L03.116 Cellulitis of left lower limb (principal); N18.30 Chronic kidney disease, stage 3 unspecified
CPT/HCPCS: 36415; 80053; 85025

== ENCOUNTER 2023-06-17 12:27 | Outpatient (CLI) | payer OTHER, SELFPAY ==
[2023-06-17 12:57] LABS: Basophils Percent Auto 0.4 % (0.2-1.2); Eosinophils Absolute Auto 0.5 K/mm3 (0-0.3); Eosinophils Percent Auto 6.5 % (0-4.4); Hematocrit 40.2 % (42.0-52.0); Hemoglobin 12.9 g/dL (14.0-18.0); Immature Granulocyte Absolute 0.02 K/mm3 (0.00-0.031); Immature Granulocyte Percent A 0.3 % (0-0.5); Lymphocytes Absolute Auto 1.85 K/mm3 (0.9-3.2); Lymphocytes Percent Auto 26.1 % (18.3-44.2); Mean Corpuscular HGB Conc 32.1 g/dl (32-36); Mean Corpuscular Hemoglobin 29.9 pg (26-34); Mean Corpuscular Volume 93.1 fl (80-100); Mean Platelet Volume 8.8 fl (7.4-10.4); Monocytes Absolute Auto 1.3 K/mm3 (0.1-0.6); Monocytes Percent Auto 18.8 % (2.6-8.5); Neutrophils Absolute Auto 3.4 K/mm3 (1.3-6.7); Neutrophils Percent Auto 47.9 % (45.5-73.1); Platelet Count Result 249 k/mm3 (150-375); Red Blood Count 4.32 M/mm3 (4.6-6.20); Red Cell Distribution Width 14.8 % (11.5-14.5); White Blood Count 7.1 K/mm3 (4.5-10.0)
[2023-06-17 13:13] LABS: Alanine Aminotransferase 24 U/L (6-50); Albumin Level 4.2 g/dL (3.5-5.1); Alkaline Phosphatase 117 U/L (38-126); Anion Gap 8 mmol/L (8-16); Aspartate Amino Transferase 33 U/L (17-59); Bilirubin,Total 0.4 mg/dL (0.2-1.3); Blood Urea Nitrogen 19 mg/dL (9-20); CRP 0.5 mg/dL (<1.0); Calcium 9.1 mg/dL (8.4-10.2); Carbon Dioxide 25 mmol/L (22-30); Chloride 104 mmol/L (98-107); Cholesterol 169 mg/dL (0-200); Estimated Glomerular Filt Rate 55; Glucose 105 mg/dL (65-110); HDL Direct 42 mg/dL; Potassium 4.4 mmol/L (3.4-5.0); Sodium 137 mmol/L (137-145); Triglycerides 154 mg/dL (<150)
[2023-06-17 13:22] LABS: LDL Cholesterol Direct 97 mg/dL
[2023-06-17 13:35] LABS: Influenza A QL RT-PCR Negative (Negative); Influenza B QL RT-PCR Negative (Negative); RSV RNA, RT-PCR Negative (Negative); SARS-CoV-2 RNA PCR Negative (Negative)
== END 2023-06-17 12:28 | disposition home or self-care (01) ==
LOC: ANHLAB 12:35
PROVIDERS: PCP Family Medicine; Visit Provider Internal Medicine Cardiovascular Disease
DX: R05.9 Cough, unspecified (principal); E78.2 Mixed hyperlipidemia; L03.116 Cellulitis of left lower limb; N18.30 Chronic kidney disease, stage 3 unspecified; R53.83 Other fatigue; R73.9 Hyperglycemia, unspecified
CPT/HCPCS: 36415; 80053; 80061; 83036; 84443; 85025; 86140; 87637

== ENCOUNTER 2023-10-31 16:14 | Outpatient (CLI) | payer OTHER, SELFPAY ==
--- NOTE | ~2023-10-31 | XR_ITS ---
XR chest 2V Ordering provider: Cathy Gandhi PA-C History: 68 years Male with . sob hx of a blood infection for 1 month . Comparison: January 01, 2022 FINDINGS: MEDIASTINUM: The cardiac silhouette is slightly enlarged. Postoperative changes in the mediastinum. P rominent fallon. LUNGS: No effusion or pneumothorax. Opacification in the left lung base suggestive of atelectasis ulysses kenroy pneumonia. Bilateral interstitial changes with possibility of edema cannot be excluded. OTHER: No free air under the diaphragm. IMPRESSION: Left basal atelectasis versus pneumonia. The Highly suggestive pulmonary edema versus pneumonitis. Reviewed, dictated and finalized at location A.
== END 2023-10-31 16:15 ==
PROVIDERS: PCP Student in an Organized Health Care Education/Training Program; Visit Provider Student in an Organized Health Care Education/Training Program
DX: R06.02 Shortness of breath (principal); R91.8 Other nonspecific abnormal finding of lung field
CPT/HCPCS: 71046

== ENCOUNTER 2023-11-01 09:15 | Outpatient (CLI) | payer OTHER, SELFPAY ==
[2023-11-01 09:45] LABS: Basophils Percent Auto 0.1 % (0.2-1.2); Eosinophils Percent Auto 0.1 % (0-4.4); Hematocrit 35.2 % (42.0-52.0); Hemoglobin 11.5 g/dL (14.0-18.0); Immature Granulocyte Absolute 0.06 K/mm3 (0.00-0.031); Immature Granulocyte Percent A 0.5 % (0-0.5); Lymphocytes Absolute Auto 0.88 K/mm3 (0.9-3.2); Lymphocytes Percent Auto 7.1 % (18.3-44.2); Mean Corpuscular HGB Conc 32.7 g/dl (32-36); Mean Corpuscular Volume 85.6 fl (80-100); Mean Platelet Volume 8.3 fl (7.4-10.4); Monocytes Absolute Auto 1.1 K/mm3 (0.1-0.6); Monocytes Percent Auto 8.6 % (2.6-8.5); Neutrophils Absolute Auto 10.3 K/mm3 (1.3-6.7); Neutrophils Percent Auto 83.6 % (45.5-73.1); Platelet Count Result 316 k/mm3 (150-375); Red Blood Count 4.11 M/mm3 (4.6-6.20); Red Cell Distribution Width 15.5 % (11.5-14.5); White Blood Count 12.4 K/mm3 (4.5-10.0)
[2023-11-01 10:52] LABS: NT Pro B Type Natriuretic Pept 1010 pg/mL (19.9-100)
[2023-11-01 11:18] LABS: Alanine Aminotransferase 38 U/L (6-50); Albumin Level 3.9 g/dL (3.5-5.1); Alkaline Phosphatase 114 U/L (38-126); Anion Gap 9 mmol/L (4-12); Aspartate Amino Transferase 37 U/L (17-59); Bilirubin,Total 0.7 mg/dL (0.2-1.3); Blood Urea Nitrogen 20 mg/dL (9-20); CRP 23.9 mg/dL (<1.0); Calcium 9.1 mg/dL (8.4-10.2); Carbon Dioxide 23 mmol/L (22-30); Chloride 101 mmol/L (98-107); Estimated Glomerular Filt Rate 50; Glucose 121 mg/dL (65-110); Potassium 3.7 mmol/L (3.4-5.0); Sodium 133 mmol/L (137-145)
== END 2023-11-01 09:16 | disposition home or self-care (01) ==
LOC: ANHLAB 09:16
PROVIDERS: PCP Family Medicine; Visit Provider Student in an Organized Health Care Education/Training Program
DX: R06.00 Dyspnea, unspecified (principal); R50.9 Fever, unspecified; R53.83 Other fatigue
CPT/HCPCS: 36415; 80053; 83880; 85025; 86140; 87040; 87181

== ENCOUNTER 2023-11-02 15:03 | Emergency (ER) | payer OTHER, SELFPAY ==
[2023-11-02] VITALS (7 sets, daily range): BP systolic 120–122; BP diastolic 67–69; PULSE 59–75; RESP 14–26; TEMP 36.6; O2SAT 94–99
--- NOTE | ~2023-11-02 | XR_ITS ---
EXAMINATION: XR chest 1V portable DATE: 11/02/2023 17:11 INDICATION: Shortness of breath. TECHNIQUE: A single frontal view of the chest was obtained. COMPARISON: Chest 2 views 10/31/2023, chest CT 12/31/2021 FINDINGS: There are airspace opacities in left mid and lower lung zones. No pleural effusion or pneum othorax. Cardiomegaly is noted. There are changes of aortic valve replacement. There is a prominent l eft pericardial fat pad. IMPRESSION: 1. Airspace opacities in left mid and lower lung zones, consistent with atelectasis versus pneumonia. 2. Cardiomegaly. Reviewed, dictated and finalized at location E. IMPRESSION: 1. Airspace opacities in left mid and lower lung zones, consistent with atelect asis versus pneumonia. 2. Cardiomegaly.
--- NOTE | 2023-11-02 15:43 | PC.NURSE ---
Pt reports he had labs drawn yesterday and was told his blood cultures were positive. Has been ill since returning from [place] 2 weeks ago and pmd ordered tests to find cause.
[2023-11-02 16:14] LABS: Basophils Percent Auto 0.1 % (0.2-1.2); Eosinophils Percent Auto 0.4 % (0-4.4); Hematocrit 33.1 % (42.0-52.0); Hemoglobin 11.2 g/dL (14.0-18.0); Immature Granulocyte Absolute 0.05 K/mm3 (0.00-0.031); Immature Granulocyte Percent A 0.5 % (0-0.5); Lymphocytes Absolute Auto 2.07 K/mm3 (0.9-3.2); Lymphocytes Percent Auto 21.9 % (18.3-44.2); Mean Corpuscular HGB Conc 33.8 g/dl (32-36); Mean Corpuscular Hemoglobin 28.6 pg (26-34); Mean Corpuscular Volume 84.7 fl (80-100); Mean Platelet Volume 8.8 fl (7.4-10.4); Monocytes Absolute Auto 1.6 K/mm3 (0.1-0.6); Monocytes Percent Auto 16.8 % (2.6-8.5); Neutrophils Absolute Auto 5.7 K/mm3 (1.3-6.7); Neutrophils Percent Auto 60.3 % (45.5-73.1); Platelet Count Result 321 k/mm3 (150-375); Red Blood Count 3.91 M/mm3 (4.6-6.20); Red Cell Distribution Width 15.7 % (11.5-14.5); White Blood Count 9.5 K/mm3 (4.5-10.0)
[2023-11-02 16:24] LABS: Alanine Aminotransferase 39 U/L (6-50); Albumin Level 3.8 g/dL (3.5-5.1); Alkaline Phosphatase 103 U/L (38-126); Anion Gap 10 mmol/L (4-12); Aspartate Amino Transferase 36 U/L (17-59); Bilirubin,Total 0.6 mg/dL (0.2-1.3); Blood Urea Nitrogen 23 mg/dL (9-20); Calcium 8.8 mg/dL (8.4-10.2); Carbon Dioxide 24 mmol/L (22-30); Chloride 98 mmol/L (98-107); Estimated CRCL calculation 59 ml/min; Estimated Glomerular Filt Rate 55; Glucose 120 mg/dL (65-110); Potassium 3.6 mmol/L (3.4-5.0); Sodium 132 mmol/L (137-145)
[2023-11-02 16:25] LABS: INR 1.1
--- NOTE | 2023-11-02 17:01 | ED.GENADULT ---
HPI - General Adult General Chief complaint: Recheck/Abnormal Lab/Rx Stated complaint: abnormal labs Time Seen by Provider: 11/02/23 15:57 History of Present Illness HPI narrative: 68-year-old male present to the emergency department for evaluation for outpatient labs that were normal. Patient states that on October 12 he began developing be a respiratory illness then also developed nausea vomiting and diarrhea. Patient states had the same symptoms. Patient states symptoms have persisted. Patient did have follow-up with his primary care physician yesterday and had outpatient labs checked. Patient was started on antibiotic for possible underlying pneumonia and patient states he does feel improved. Patient received a call from his primary care physician telling he needed to be evaluated. Patient was not told which labs were of normal. Patient states he does feel improved. Related Data Home Medications Medication Instructions Recorded Confirmed loratadine 10 mg capsule 10 mg PO DAILY 11/21/19 10/31/23 acetaminophen 650 mg 650 mg PO Q12H PRN Pain 12/16/21 10/31/23 tablet,extended release fluticasone propionate 50 1 spray intranasal DAILY 06/06/22 10/31/23 mcg/actuation nasal spray,suspension (Flonase Allergy Relief) atorvastatin 20 mg tablet 60 mg PO DAILY 03/03/23 10/31/23 Allergies Allergy/AdvReac Type Severity Reaction Status Date / Time heparin Allergy Unknown Verified 11/02/23 15:25 Review of Systems Review of Systems: All systems reviewed & are unremarkable except as noted in HPI and below PMFSH Past Medical History Medical History Aortic stenosis Status post bioprosthetic aortic valve replacement. Arthritis Chronic anticoagulation Chronic deep vein thrombosis (09/2018) Left popliteal vein. Chronic renal insufficiency, stage III (moderate) Congestive heart failure Echo 12/16/2021: Mild left ventricular enlargement, EF greater than 70%, abnormal left ventricular diastolic function, severe left atrial enlargement, mild mitral valve regurgitation, moderate pulmonary hypertension RVSP 48, moderate aortic valve stenosis. Endocarditis Enterococcal bacteremia History of COVID-19 Hypertension Mixed hyperlipidemia Obstructive sleep apnea on CPAP Osteomyelitis of great toe of left foot Prediabetes Psoriasis Pulmonary embolism (~09/2018) With CTA November 2021 demonstrating chronic right lower lobe pulmonary embolism Pulmonary hypertension RVSP of 48 on echo in November 2021. Surgical History Surgical History History of aortic valve replacement with bioprosthetic valve History of inferior vena caval filter placement History of mitral valve replacement with bioprosthetic valve History of tracheostomy Family History Family History Mother Liver cancer Father Alcoholism Social History Social History Social History: Surrogate medical decision maker: Lyndsey Bolden, . Code status: Full code. Smoking status: Never smoker Second hand tobacco smoke exposure: No Alcohol intake: never Substance use: never Substance use type: does not use Lack of Transportation: No Lack of Food: Never True Current Housing: I Do Not Have Housing Concerned About Future Housing: No Difficulty Paying Gas/Electric Bills: No Difficulty Paying for Meds: No Currently Unemployed: No Education: Bachelor's Degree Difficulty w/ Childcare or Family Care: No Living arrangements: with family Additional living arrangements comments: Lives with in [place]. They have adult twin daughters. 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 Spiritual care concerns: No Agree to blood products: Yes Exam Narra
[2023-11-02 17:48] LABS: Appearance Urine Clear (Clear); Bilirubin Urine Negative (Negative); Blood Urine Negative (Negative); Color Urine Yellow (Yellow); Glucose Urine UA Negative (Negative); Ketones Urine Negative (Negative); Leukocyte Esterase Ur Negative LEU/UL (Negative); Nitrate Urine Negative (Negative); Protein Urine Negative (Negative); Specific Grav Ur 1.008 (1.001-1.035); Urobilinogen Urine 0.2 mg/dL (<2.0); pH Urine 5.5 (5.0-9.0)
[2023-11-02 17:50] LABS: Add Urine Microscopic? NO
== END 2023-11-02 18:40 | disposition home or self-care (01) ==
PROVIDERS: Emergency Provider Emergency Medicine; PCP Family Medicine
DX: J18.9 Pneumonia, unspecified organism (principal); I13.0 Hypertensive heart and chronic kidney disease with heart failure and stage 1 through stage 4 chronic kidney disease, or unspecified chronic kidney disease; N18.30 Chronic kidney disease, stage 3 unspecified; I50.9 Heart failure, unspecified; R73.03 Prediabetes; I35.0 Nonrheumatic aortic (valve) stenosis; I38 Endocarditis, valve unspecified; I27.20 Pulmonary hypertension, unspecified; L40.9 Psoriasis, unspecified; E78.2 Mixed hyperlipidemia; G47.33 Obstructive sleep apnea (adult) (pediatric); M19.90 Unspecified osteoarthritis, unspecified site; Z95.2 Presence of prosthetic heart valve; Z86.718 Personal history of other venous thrombosis and embolism; Z86.711 Personal history of pulmonary embolism; Z86.16 Personal history of COVID-19; Z79.899 Other long term (current) drug therapy; Z79.82 Long term (current) use of aspirin; Z79.01 Long term (current) use of anticoagulants; I51.7 Cardiomegaly
CPT/HCPCS: 36415; 71045; 80053; 81003; 85025; 85610; 85730; 99283

== ENCOUNTER 2023-11-13 13:33 | Outpatient (CLI) | payer OTHER, SELFPAY | END 2023-11-13 13:34 | disposition home or self-care (01) | LOC: ANHLAB 13:34 | PROVIDERS: PCP Family Medicine; Visit Provider Student in an Organized Health Care Education/Training Program | DX: D72.829 Elevated white blood cell count, unspecified (principal); R50.9 Fever, unspecified | CPT/HCPCS: 87040; 87077; 87181 ==

== ENCOUNTER 2023-11-14 17:50 | Emergency (ER) | payer MEDICARE, SELFPAY ==
--- NOTE | ~2023-11-14 | XR_ITS ---
EXAMINATION: XR chest 1V portable Exam Date/Time: 11/14/2023 19:00 CDT HISTORY: infective endocarditis Comparison: 11/02/2023; 12/31/2021. RESULT: Lines, tubes, and devices: Intact sternotomy wires. Cardiac valve replacement. Lungs and pleura: Linear and subsegmental left basilar opacities, likely unchanged Persistent left c ostophrenic angle blunting likely secondary to a prominent pericardial fat pad. Cardiomediastinal silhouette: Stable. Other: No acute osseous or upper abdominal finding. IMPRESSION: Likely left basilar atelectasis/scar. Infection not excluded. Reviewed, dictated and finalized at location K.
[2023-11-14 18:07] VITALS: BP 120/62; PULSE 62; RESP 18; TEMP 36.6; O2SAT 99
[2023-11-14 18:51] LABS: Basophils Percent Auto 0.2 % (0.2-1.2); Eosinophils Absolute Auto 0.1 K/mm3 (0-0.3); Eosinophils Percent Auto 0.8 % (0-4.4); Hematocrit 35.2 % (42.0-52.0); Hemoglobin 11.5 g/dL (14.0-18.0); Immature Granulocyte Absolute 0.04 K/mm3 (0.00-0.031); Immature Granulocyte Percent A 0.5 % (0-0.5); Lymphocytes Absolute Auto 1.85 K/mm3 (0.9-3.2); Lymphocytes Percent Auto 22.4 % (18.3-44.2); Mean Corpuscular HGB Conc 32.7 g/dl (32-36); Mean Corpuscular Hemoglobin 28.5 pg (26-34); Mean Corpuscular Volume 87.1 fl (80-100); Mean Platelet Volume 9.2 fl (7.4-10.4); Monocytes Absolute Auto 1.3 K/mm3 (0.1-0.6); Monocytes Percent Auto 15.1 % (2.6-8.5); Platelet Count Result 291 k/mm3 (150-375); Red Blood Count 4.04 M/mm3 (4.6-6.20); Red Cell Distribution Width 16.9 % (11.5-14.5); White Blood Count 8.3 K/mm3 (4.5-10.0)
[2023-11-14 18:55] LABS: Alanine Aminotransferase 30 U/L (6-50); Albumin Level 3.9 g/dL (3.5-5.1); Alkaline Phosphatase 110 U/L (38-126); Anion Gap 11 mmol/L (4-12); Aspartate Amino Transferase 37 U/L (17-59); Bilirubin,Total 0.6 mg/dL (0.2-1.3); Blood Urea Nitrogen 18 mg/dL (9-20); Carbon Dioxide 23 mmol/L (22-30); Chloride 99 mmol/L (98-107); Estimated CRCL calculation 59 ml/min; Estimated Glomerular Filt Rate 55; Glucose 97 mg/dL (65-110); Potassium 3.7 mmol/L (3.4-5.0); Sodium 133 mmol/L (137-145)
--- NOTE | 2023-11-14 19:03 | ECG_ITS ---
Test Date: 2023-11-14 19:22:13 Measurements Intervals [place] Rate: 61 P: 73 ID: 165 QRS: 33 QRSD: 120 T: 24 QT: 424 QTc: 430 Interpretive Statements SINUS RHYTHM INTRAVENTRICULAR CONDUCTION DELAY VOLTAGE CRITERIA FOR LVH BASELINE ARTIFACT- I, II, III, AVR, AVL, AVF BORDERLINE ECG No previous ECG available for comparison Electronically Signed On 11-14-2023 19:24:22 CDT by [place] D.O.
[2023-11-14 19:36] LABS: INR 1.1; Prothrombin Time 14.1 Seconds (11.1-14.7)
[2023-11-14 19:37] LABS: Partial Thromboplastin Time 36.7 Seconds (22.3-36.8)
[2023-11-14 19:53] LABS: Erythrocyte Sedimentation Rate 78 mm/hr (0-20)
--- NOTE | 2023-11-14 20:14 | ED.GENADULT ---
HPI - General Adult General Chief complaint: Recheck/Abnormal Lab/Rx Stated complaint: abdnormal labs Time Seen by Provider: 11/14/23 18:58 History of Present Illness HPI narrative: This 68-year-old male presenting ED with chief complaint of feeling unwell (fatigue/intermittent fevers) for the last month. Patient has been working with the emergency rooms and his primary care physician and has been diagnosed with viral syndromes/ pneumonia and CHF exacerbation over the last month. However his blood cultures have come back positive multiple times for Staph Mitis which can be causative of infective endocarditis. the patient was treated with cefdinir feel well for a week but then his symptoms have returned. Patient denies chest pain difficulty breathing abdominal pain nausea vomiting or diarrhea. Still feels fatigued. Related Data Home Medications Medication Instructions Recorded Confirmed loratadine 10 mg capsule 10 mg PO DAILY 11/21/19 11/07/23 acetaminophen 650 mg 650 mg PO Q12H PRN Pain 12/16/21 11/07/23 tablet,extended release fluticasone propionate 50 1 spray intranasal DAILY 06/06/22 11/07/23 mcg/actuation nasal spray,suspension (Flonase Allergy Relief) Allergies Allergy/AdvReac Type Severity Reaction Status Date / Time heparin Allergy Unknown Verified 11/14/23 18:33 [facility] Past Medical History Medical History Aortic stenosis Status post bioprosthetic aortic valve replacement. Arthritis Chronic anticoagulation Chronic deep vein thrombosis (09/2018) Left popliteal vein. Chronic renal insufficiency, stage III (moderate) Congestive heart failure Echo 12/16/2021: Mild left ventricular enlargement, EF greater than 70%, abnormal left ventricular diastolic function, severe left atrial enlargement, mild mitral valve regurgitation, moderate pulmonary hypertension RVSP 48, moderate aortic valve stenosis. Endocarditis Enterococcal bacteremia History of COVID-19 Hypertension Mixed hyperlipidemia Obstructive sleep apnea on CPAP Osteomyelitis of great toe of left foot Prediabetes Psoriasis Pulmonary embolism (~09/2018) With CTA November 2021 demonstrating chronic right lower lobe pulmonary embolism Pulmonary hypertension RVSP of 48 on echo in November 2021. Surgical History Surgical History History of aortic valve replacement with bioprosthetic valve History of inferior vena caval filter placement History of mitral valve replacement with bioprosthetic valve History of tracheostomy Family History Family History Mother Liver cancer Father Alcoholism Social History Social History Social History: Surrogate medical decision maker: Lyndsey Bolden, . Code status: Full code. Smoking status: Never smoker Second hand tobacco smoke exposure: No Alcohol intake: never Substance use: never Substance use type: does not use Lack of Transportation: No Lack of Food: Never True Current Housing: I Do Not Have Housing Concerned About Future Housing: No Difficulty Paying Gas/Electric Bills: No Difficulty Paying for Meds: No Currently Unemployed: No Education: Bachelor's Degree Difficulty w/ Childcare or Family Care: No Living arrangements: with family Additional living arrangements comments: Lives with in [place]. They have adult twin daughters. 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 Spiritual care concerns: No Agree to blood products: Yes Exam Narrative: APPEARANCE: No apparent distress. Non-toxic Head: atraumatic. EYES: EOMI, NOSE: Atraumatic NECK: Trachea midline RESPIRATORY: No increased rate of breathing, ctab CARDIOVASCULAR: RRR, systolic ejection murm
[2023-11-14 20:17] LABS: Appearance Urine Clear (Clear); Bilirubin Urine Negative (Negative); Blood Urine Negative (Negative); Color Urine Yellow (Yellow); Glucose Urine UA Negative (Negative); Ketones Urine Negative (Negative); Leukocyte Esterase Ur Negative LEU/UL (Negative); Nitrate Urine Negative (Negative); Protein Urine Negative (Negative); Specific Grav Ur 1.009 (1.001-1.035); Urobilinogen Urine 0.2 mg/dL (<2.0); pH Urine 6.5 (5.0-9.0)
--- NOTE | 2023-11-14 20:18 | PC.NURSE ---
phelobotomy called for pt blood cultures and lactic. This RN attempted 3x and had no luck. Afualobotomy arrived to ED at 2018.
[2023-11-14 20:21] VITALS: BP 154/87; PULSE 63; RESP 18; O2SAT 98
[2023-11-14 20:21] LABS: Add Urine Microscopic? NO
[2023-11-14 20:54] LABS: Lactic Acid Reflex 0.9 mmol/L (0.7-2.0)
[2023-11-14 20:55] LABS: Phosphorus 2.4 mg/dL (2.5-4.5)
[2023-11-14 21:08] LABS: NT Pro B Type Natriuretic Pept 1410 pg/mL (19.9-100); Troponin I 0.014 ng/mL (0.000-0.034)
[2023-11-14 21:10] LABS: CRP 11.8 mg/dL (<1.0)
[2023-11-14] MEDS: PIPERACILLN/TAZ 3.375GM/NS50ML 3.375 GM/50 ML BAG IVPB (21:10)
[2023-11-14] MEDS: VANCOMYCIN 1,250 MG/NS 250 ML 1,250 MG/250 ML BAG 166.67 MG IVPB ×2 (22:06→23:49)
[2023-11-14 23:17] VITALS: BP 116/56; PULSE 60; RESP 24; O2SAT 95
== END 2023-11-15 01:04 | disposition short-term general hospital (02) ==
PROVIDERS: Student in an Organized Health Care Education/Training Program; Emergency Provider Emergency Medicine; PCP Family Medicine
DX: I38 Endocarditis, valve unspecified (principal); R70.0 Elevated erythrocyte sedimentation rate; M19.90 Unspecified osteoarthritis, unspecified site; Z79.01 Long term (current) use of anticoagulants; I13.0 Hypertensive heart and chronic kidney disease with heart failure and stage 1 through stage 4 chronic kidney disease, or unspecified chronic kidney disease; N18.30 Chronic kidney disease, stage 3 unspecified; I50.9 Heart failure, unspecified; G47.30 Sleep apnea, unspecified; I27.20 Pulmonary hypertension, unspecified; Z86.711 Personal history of pulmonary embolism
CPT/HCPCS: 36415; 71045; 80053; 81003; 83605; 83735; 83880; 84100; 84484; 85025; 85610; 85652; 85730; 86140; 87040; 93005; 96365; 96366; 96367; 99284; 99285; J2543; J3370

== ENCOUNTER 2023-11-27 14:59 | Outpatient (CLI) | payer MEDICARE, SELFPAY ==
[2023-11-27 15:19] LABS: Basophils Percent Auto 0.2 % (0.2-1.2); Eosinophils Absolute Auto 0.3 K/mm3 (0-0.3); Eosinophils Percent Auto 3.5 % (0-4.4); Hemoglobin 10.6 g/dL (14.0-18.0); Immature Granulocyte Absolute 0.03 K/mm3 (0.00-0.031); Immature Granulocyte Percent A 0.4 % (0-0.5); Lymphocytes Absolute Auto 1.16 K/mm3 (0.9-3.2); Mean Corpuscular HGB Conc 32.1 g/dl (32-36); Mean Corpuscular Hemoglobin 29.1 pg (26-34); Mean Corpuscular Volume 90.7 fl (80-100); Mean Platelet Volume 8.1 fl (7.4-10.4); Monocytes Absolute Auto 0.6 K/mm3 (0.1-0.6); Monocytes Percent Auto 7.4 % (2.6-8.5); Neutrophils Absolute Auto 6.2 K/mm3 (1.3-6.7); Neutrophils Percent Auto 74.5 % (45.5-73.1); Platelet Count Result 309 k/mm3 (150-375); Red Blood Count 3.64 M/mm3 (4.6-6.20); White Blood Count 8.3 K/mm3 (4.5-10.0)
[2023-11-27 15:33] LABS: Alanine Aminotransferase 40 U/L (6-50); Albumin Level 3.9 g/dL (3.5-5.1); Alkaline Phosphatase 116 U/L (38-126); Anion Gap 6 mmol/L (4-12); Aspartate Amino Transferase 33 U/L (17-59); Bilirubin,Total 0.4 mg/dL (0.2-1.3); Blood Urea Nitrogen 12 mg/dL (9-20); CRP 2.1 mg/dL (<1.0); Calcium 8.8 mg/dL (8.4-10.2); Carbon Dioxide 28 mmol/L (22-30); Chloride 102 mmol/L (98-107); Estimated Glomerular Filt Rate > 60; Glucose 96 mg/dL (65-110); Potassium 4.3 mmol/L (3.4-5.0); Sodium 136 mmol/L (137-145)
== END 2023-11-27 15:00 | disposition home or self-care (01) ==
PROVIDERS: PCP Family Medicine; Visit Provider Family Medicine
DX: I38 Endocarditis, valve unspecified (principal); N18.30 Chronic kidney disease, stage 3 unspecified
CPT/HCPCS: 36415; 80053; 85025; 86140

== ENCOUNTER 2023-11-29 14:20 | Outpatient (CLI) | payer MEDICARE, SELFPAY ==
[2023-11-29 15:22] LABS: Influenza A QL RT-PCR Negative (Negative); Influenza B QL RT-PCR Negative (Negative); RSV RNA, RT-PCR Negative (Negative); SARS-CoV-2 RNA PCR Positive (Negative)
== END 2023-11-29 14:21 | disposition home or self-care (01) ==
PROVIDERS: PCP Family Medicine; Visit Provider Family Medicine
DX: U07.1 COVID-19 (principal)
CPT/HCPCS: 87637

== ENCOUNTER 2023-12-06 14:35 | Emergency (ER) | payer MEDICARE, SELFPAY ==
--- NOTE | ~2023-12-06 | XR_ITS ---
XR chest 1V portable 12/06/2023 15:07 Indication: PICC line verification Procedure: AP portable chest Comparison: Comparison to multiple prior studies sequentially, with oldest reviewed study dated 12/2023. Findings: Status post median sternotomy for CABG. Cardiomegaly. Mild interstitial edema. Scarring pre sent left mid thorax. PICC line tip in the SVC. There is a prosthetic aortic valve. Impression: 1: Cardiomegaly with mild interstitial edema. Reviewed, dictated and finalized at location B. Impression: 1: Cardiomegaly with mild interstitial edema.
--- NOTE | ~2023-12-06 | XR_ITS ---
EXAMINATION: XR chest PICC line DATE: 12/06/2023 19:07 INDICATION: PICC line placement TECHNIQUE: frontal view of the chest was obtained. COMPARISON: Chest radiograph dated 12/06/2023 FINDINGS: There are bilateral upper extremity peripherally inserted central venous catheter (PICC) with distal tip of the left-sided catheter at the caudal superior vena cava. The right-sided catheter tip at the midsuperior vena cava. Persistent opacity obscuring the apex of the heart and the left costophrenic angle corresponding to a small paracardial fat pad and associated lingular atelectasis. Unchanged mild linear discoid atelect asis/scarring at the lateral left midlung zone. No new airspace opacities, pulmonary edema, pleural e ffusion or pneumothorax. The cardiomediastinal silhouette is within normal limits conifer AP techniqu e. Median sternotomy wires and mediastinal surgical clips are seen, likely from prior coronary artery bypass grafting. Aortic valve repair. Epicardial pacemaker leads projecting over the inferior heart. IMPRESSION: 1. Left and right upper extremity peripherally inserted central venous catheters with distal tips at the caudal and mid superior vena cava respectively. 2. Unchanged mild atelectasis at the left mid and lower lung zones. Reviewed, dictated and finalized at location A. IMPRESSION: 1. Left and right upper extremity peripherally inserted central venous catheter s with distal tips at the caudal and mid superior vena cava respectively. 2. Unchanged mild atelectasis at the left mid and lower lung zones.
[2023-12-06 14:39] VITALS: BP 142/68; PULSE 67; RESP 16; TEMP 36.2; O2SAT 99
[2023-12-06] MEDS: ALTEPLASE 2 MG VIAL (CATHFLO) IV PUSH (15:55)
--- NOTE | 2023-12-06 16:25 | ED.GENADULT ---
HPI - General Adult General Chief complaint: Unspecified Stated complaint: clot in PICC line Time Seen by Provider: 12/06/23 15:19 History of Present Illness HPI narrative: Yuan Weiner is a 68 y/o male who presents today with reports of having a single PICC to his right upper arm that he is using with home health for IV antibioitcs. He states that it has been slowing down at home and last night he was unable to push anything though it. His Home health came to his home today and tried to get it to flush but couldn't and sent him here to get it alteplased. He denies any pain to the area/ no redness noted/ denies any other new or worsening symptoms. Related Data Home Medications Medication Instructions Recorded Confirmed loratadine 10 mg capsule 10 mg PO DAILY 11/21/19 11/21/23 acetaminophen 650 mg 650 mg PO Q12H PRN Pain 12/16/21 11/21/23 tablet,extended release fluticasone propionate 50 1 spray intranasal DAILY 06/06/22 11/21/23 mcg/actuation nasal spray,suspension (Flonase Allergy Relief) Allergies Allergy/AdvReac Type Severity Reaction Status Date / Time heparin Allergy Unknown Verified 11/21/23 13:37 Review of Systems Review of Systems: All systems reviewed & are unremarkable except as noted in HPI and below PMFSH Past Medical History Medical History Aortic stenosis Status post bioprosthetic aortic valve replacement. Arthritis Chronic anticoagulation Chronic deep vein thrombosis (09/2018) Left popliteal vein. Chronic renal insufficiency, stage III (moderate) Congestive heart failure Echo 12/16/2021: Mild left ventricular enlargement, EF greater than 70%, abnormal left ventricular diastolic function, severe left atrial enlargement, mild mitral valve regurgitation, moderate pulmonary hypertension RVSP 48, moderate aortic valve stenosis. Endocarditis Enterococcal bacteremia History of COVID-19 Hypertension Mixed hyperlipidemia Obstructive sleep apnea on CPAP Osteomyelitis of great toe of left foot Persistent bacteremia Prediabetes Psoriasis Pulmonary embolism (~09/2018) With CTA November 2021 demonstrating chronic right lower lobe pulmonary embolism Pulmonary hypertension RVSP of 48 on echo in November 2021. Surgical History Surgical History History of aortic valve replacement with bioprosthetic valve History of inferior vena caval filter placement History of mitral valve replacement with bioprosthetic valve History of tracheostomy Family History Family History Mother Liver cancer Father Alcoholism Social History Social History Social History: Surrogate medical decision maker: Lyndsey Bolden, . Code status: Full code. Smoking status: Never smoker Second hand tobacco smoke exposure: No Alcohol intake: never Substance use: never Substance use type: does not use Lack of Transportation: No Lack of Food: Never True Current Housing: I Do Not Have Housing Concerned About Future Housing: No Difficulty Paying Gas/Electric Bills: No Difficulty Paying for Meds: No Currently Unemployed: No Education: Bachelor's Degree Difficulty w/ Childcare or Family Care: No Living arrangements: with family Additional living arrangements comments: Lives with in [place]. They have adult twin daughters. Occupation/Education: occupation Additional occupation/education comments: [employer]. Spiritual care concerns: No Agree to blood products: Yes Exam Narrative: GENERAL: Well-appearing, well-nourished, and in no acute distress. HEAD: Normocephalic, atraumatic. EYES: PERRLA and EOMI. ENT: Nares clear, no rhinorrhea or epistaxis. Mucous membranes moist. Oropharynx without tonsillar hypertrophy exudate or other lesions.
[2023-12-06 20:22] VITALS: BP 162/43; PULSE 60; RESP 16; TEMP 36.4; O2SAT 99
== END 2023-12-06 20:25 | disposition home or self-care (01) ==
PROVIDERS: Emergency Provider Nurse Practitioner Family; PCP Family Medicine
DX: T82.594A Other mechanical complication of infusion catheter, initial encounter (principal); I35.0 Nonrheumatic aortic (valve) stenosis; I13.0 Hypertensive heart and chronic kidney disease with heart failure and stage 1 through stage 4 chronic kidney disease, or unspecified chronic kidney disease; N18.30 Chronic kidney disease, stage 3 unspecified; I50.9 Heart failure, unspecified; I27.20 Pulmonary hypertension, unspecified; R73.03 Prediabetes; L40.9 Psoriasis, unspecified; G47.33 Obstructive sleep apnea (adult) (pediatric); Z95.2 Presence of prosthetic heart valve; Z86.711 Personal history of pulmonary embolism; Z86.16 Personal history of COVID-19; I51.7 Cardiomegaly; Z79.01 Long term (current) use of anticoagulants; Z79.82 Long term (current) use of aspirin; Z79.899 Other long term (current) drug therapy; Y84.8 Other medical procedures as the cause of abnormal reaction of the patient, or of later complication, without mention of misadventure at the time of the procedure
CPT/HCPCS: 36569; 71045; 96374; 99283; C1751; J2997

== ENCOUNTER 2024-01-08 11:41 | Outpatient (RCR) | payer MEDICARE, SELFPAY ==
[2023-12-22 16:35] LABS: INR 1.4; Prothrombin Time 17.4 Seconds (11.1-14.7)
[2024-01-08 12:45] LABS: INR 1.8; Prothrombin Time 21.2 Seconds (11.1-14.7)
== END 2024-03-21 23:59 | disposition home or self-care (01) ==
LOC: ANHLAB 11:41
PROVIDERS: PCP Family Medicine; Visit Provider Internal Medicine Cardiovascular Disease
DX: Z95.3 Presence of xenogenic heart valve (principal)
CPT/HCPCS: 36415; 85610

== ENCOUNTER 2024-12-26 08:54 | Outpatient (CLI) | payer MEDICARE, SELFPAY ==
--- NOTE | ~2024-12-26 | XR_ITS ---
XR chest 2V 12/26/2024 09:09 Indication: Cough Procedure: 2 view chest Comparison: Comparison to multiple prior studies sequentially, with oldest reviewed study dated 11/02/2023. Findings: Status post median sternotomy for CABG. Cardiomegaly. No focal air space disease, pulmonary edema, pleural effusion or suspected pneumothorax. Impression: 1: No acute cardiopulmonary disease. Reviewed, dictated and finalized at location O. Impression: 1: No acute cardiopulmonary disease.
== END 2024-12-26 08:55 | disposition home or self-care (01) ==
LOC: MICIMG 08:55
PROVIDERS: PCP Family Medicine; Visit Provider Family Medicine
DX: R05.9 Cough, unspecified (principal)
CPT/HCPCS: 71046